=== PATIENT | female | born 1945 | race Caucasian/White ===

== ENCOUNTER 2018-06-28 08:52 | Emergency (ER) | payer MEDICARE, OTHER, SELFPAY ==
[2018-06-28 08:54] VITALS: BP 196/107; PULSE 97; RESP 18; TEMP 36.3; O2SAT 95; BMI 14.4
--- NOTE | 2018-06-28 09:12 | EKG12_ITS ---
Test Reason : GEN ILLNESS Blood Pressure : / mmHG Vent. Rate : 073 BPM Atrial Rate : 073 BPM P-R Int : 126 ms QRS Dur : 082 ms QT Int : 408 ms P-R-T Axes : 086 084 070 degrees QTc Int : 449 ms Normal sinus rhythm Normal ECG Confirmed by CLARISSA OWENS, JESIKA ([id number]), assignment editor VIVIAN CUETO ([id number]) on 07/01/2018 10:20:49 AM Referred By: SWETA Confirmed By:JESIKA ROMO MD
--- NOTE | 2018-06-28 09:18 | ED.DCSUM_ITS ---
- ER Visit Summary Date of Service: 06/28/18 Chief Complaint: Cough and congestion History of Present Illness: The patient is a 72 F with URI symptoms for the past 1 week. She is complaining of head congestion and ear pain last week. She was seen in the clinic and given amoxicillin. She still has cough and now more chest congestion. She states she woke at 6 AM this morning with left chest pressure. It is worse with movement and deep breath. She went back to bed got up at 8 AM and still had symptoms. When preparing to come to the hospital she had a fit of coughing and now pain is significantly improved. She denies having fever or chills. Physical Examination: Vital signs significant for blood pressure of 196/107. Patient sitting upright in bed. She is nontoxic appearing. Head neck examination reveals TMs to be clear bilaterally. She has mild posterior pharyngeal drainage. Heart is regular rate and rhythm. Lung sounds are clear. No reproducible chest wall tenderness. No crepitus. Abdomen is soft and nontender. Test Results: Two-view chest x-ray shows no acute disease. EKG is sinus at 73 with no sign of ischemia Emergency Department Course and Treatment: Patient was given DuoNeb treatment here. On repeat evaluation she does feel improved and has increased air movement on auscultation. She did take a home dose of Tylenol. Test results are discussed with patient and . I believe she is a viral URI. I believe her episode this morning was likely caused from a mucous plug. After coughing her symptoms seem to resolve. She will be given a course of prednisone and will continue to use her MDI at home. Treatment Plan: [] Disposition: Discharge Impression: 1. Viral URI 2. Atypical chest pain This note was generated with Part[employer] dictation software. It may contain incorrect words, spelling, and punctuation that were not noted in review of the chart prior to signing ED Disposition - Plan for ED Patient: Disposition: Home or Assisted Living Instructions: ED Reactive Airway Disease, ED URI Viral Prescriptions: Prednisone [Deltasone] 40 mg PO DAILY #10 tablet Referrals: Teddy Elmore MD [Primary Care Provider] - 1 Week
[2018-06-28 09:20] VITALS: PULSE 88; RESP 18
[2018-06-28] MEDS: Ipratropium/Albuterol Sulfate 3 ML AMPUL.NEB INHALATION (09:26)
--- NOTE | 2018-06-28 09:44 | RAD_ITS ---
STUDY: X-RAY CHEST REASON FOR EXAM: Female, 72 years old. Cough. TECHNIQUE: PA and lateral views of the chest. COMPARISON: 52 FINDINGS: The lungs are clear and expanded. There are well-defined nodular densities overlying both lungs likely due to the nipple shadows. There is no demonstrated pleural abnormality. Normal size heart. Normal mediastinum and simon. Normal visualized pulmonary. There is atherosclerotic calcification of the aortic arch with tortuosity. Normal visualized thoracic spine. Normal visualized ribs, clavicles, and shoulders. There is no demonstrated abnormality of the visualized soft tissue structures of the upper abdomen. RAD/Chest PA and Lateral IMPRESSION: No active pulmonary disease. Electronically Signed: Modesto Paris MD at 10:48 EST Tel , Service support ,
[2018-06-28 10:10] VITALS: BP 181/94; PULSE 71; PULSE 73; RESP 16; TEMP 36.9; O2SAT 92; O2SAT 93
--- NOTE | 2018-06-28 11:16 | ED.DEP ---
ED Disposition - Plan for ED Patient: Disposition: Home or Assisted Living Instructions: ED URI Viral, ED Reactive Airway Disease Prescriptions: Prednisone [Deltasone] 40 mg PO DAILY #10 tablet Referrals: Teddy Elmore MD [Primary Care Provider] - 1 Week
[2018-06-28 11:25] VITALS: BP 176/86; PULSE 76; RESP 16; O2SAT 98
== END 2018-06-28 11:26 | disposition home or self-care (01) ==
PROVIDERS: Emergency Provider Emergency Medicine; Family Provider Family Medicine; PCP Family Medicine
DX: J06.9 Acute upper respiratory infection, unspecified (principal); R07.89 Other chest pain; Z85.828 Personal history of other malignant neoplasm of skin; Z72.0 Tobacco use
CPT/HCPCS: 71046; 93005; 94640; 99282

== ENCOUNTER 2020-07-22 21:08 | Outpatient (RCR) | payer MEDICARE, OTHER, SELFPAY ==
[2020-07-22] MEDS: COVID-19 VACC, MRNA(PFIZER)/PF 30 MCG/0.3 ML SYRINGE IM (11:58)
[2020-08-12] MEDS: COVID-19 VACC, MRNA(PFIZER)/PF 30 MCG/0.3 ML SYRINGE IM (11:18)
== END 2020-07-22 23:59 ==
LOC: IMMUN 21:08
PROVIDERS: PCP Internal Medicine; Visit Provider Family Medicine
DX: Z23 Encounter for immunization (principal)
CPT/HCPCS: 0001A; 0002A

== ENCOUNTER 2023-05-28 09:02 | Observation (INO) | payer MEDICARE, OTHER, SELFPAY ==
[2023-05-28] VITALS (11 sets, daily range): BP systolic 127–176; BP diastolic 71–115; PULSE 79–111; RESP 16–20; TEMP 36.4–36.9; O2SAT 85–98; BMI 14.3; BMI 14.1
--- NOTE | 2023-05-28 09:37 | ED.VIS.DYS ---
HPI History of Present Illness Chief Complaint: Shortness of Breath Informant: patient Onset/Context/Timing Onset: Days (5-7) Context: gradual Timing: Continuous Quality: Positive for Dyspnea on exertion Worsened by: Exertion, Lying flat and Coughing Relieved by: Nothing Associated Symptoms cough, sore throat and clear sputum; Negative for rhinorrhea, post nasal drip, ear pain, fever, chills, white sputum, yellow sputum or green sputum Chest Pain: Positive for None Narrative Narrative: Patient presents with shortness of breath that has been getting worse over the past 5 to 7 days. Patient states it is gradually getting worse. Patient states her breathing is worse with exertion and with laying flat. Patient states she is coughing up some clear sputum. Patient also admits to a sore throat. Patient admits to some subjective chills but denies any fevers. Patient denies any chest pain. Patient denies any nausea or vomiting. PE Risk Factors: Negative for Cancer, OCP + Smoking + > 35, Prior DVT or PE, Recent immobilization, Recent surgery or Recent travel [facility] Medical History Basal cell carcinoma (BCC) Eardrum rupture, right External otitis of left ear Polyp, vocal cord Home Medications diphenoxylate-atropine 2.5 mg-0.025 mg tablet 1 tab PO TID PRN DIARRHEA 07/02/14 [History Last Taken Unknown] zpmafdcg-hvh-cfeee acid 0.4 mg-lycopene 300 mcg-lutein 250 mcg tablet (Centrum Silver) 1 ea PO DAILY HEALTH MAINTENANCE 07/02/14 [History Last Taken Unknown] rizatriptan 10 mg tablet 10 mg PO .X1 PRN MIGRAINE 07/02/14 [History Last Taken Unknown] lisinopril 30 mg tablet 30 mg PO BID BLOOD PRESSURE #180 tabs 05/29/22 [Rx Last Taken Unknown] albuterol sulfate 90 mcg/actuation aerosol inhaler 2 puff inhalation Q6H PRN SHORTNESS OF BREATH/WHEEZING #8.5 grams 10/09/22 [Rx Last Taken Unknown] dicyclomine 20 mg tablet 20 mg PO TID PRN ABDOMINAL PAIN 05/28/23 [History Last Taken Unknown] Allergy/AdvReac Type Severity Reaction Status Date / Time Sulfa (Sulfonamide Allergy Shortness Verified 05/28/23 09:04 Antibiotics) of breath valdecoxib [From Bextra] Allergy Unknown Verified 05/28/23 09:04 amoxicillin AdvReac Upset Verified 05/28/23 09:04 Stomach erythromycin base AdvReac Upset Verified 05/28/23 09:04 Stomach Family History Other Breast cancer Heart disease Surgical History H/O colectomy H/O hysterectomy for benign disease Social History Smoking Status: Current every day smoker tobacco type: cigarettes alcohol intake: current alcohol intake frequency: a few times a week Alcohol type: wine ROS ROS ED Constitutional Constitutional ED: Denies chills or fever(s) Eyes Eyes: Denies blurry vision or change in vision ENT ENT ED: Reports sore throat; Denies rhinorrhea Cardiovascular Cardiovascular: Denies chest pain or palpitations Respiratory/Chest Respiratory/Chest: Reports cough and dyspnea Gastrointestinal Gastrointestinal: Denies nausea or vomiting Genitourinary Genitourinary ED: Denies dysuria or hematuria Musculoskeletal Musculoskeletal: Denies back pain or neck pain Integumentary Denies abscess or rash Neurologic Neurologic: Reports headache(s); Denies weakness Allergic/Immunologic Allergic/Immunologic ED: Denies mouth swelling or urticaria EXAM Physical Exam Const Vital Signs: 05/28/23 09:02 05/28/23 09:04 05/28/23 09:16 Temperature 97.7 F L 97.6 F L Temperature Source Temporal Temporal Pulse Rate 111 H 103 H Respiratory Rate 18 18 Respiratory Effort Short of Breath Respiratory Depth Normal Respiratory Pattern Normal Blood Pressure 176/115 H 157/71 H Blood Pressure Mean 135 99 Pulse Ox 85 92 Oxygen Delivery Method Room Air Room Air Room Air 05/28/23 10:11 05/28/23 10:11 05/28/23 10:24 Temperature Temperature Source Pulse Rate 84 92 Respiratory Rate 17 19 H Respiratory Effort Respiratory Depth Respiratory Pattern Normal Blood Pressure 148/72 H Blood Pressure Mean 97 Pulse Ox 94 94 Oxygen Delivery Method Room Air Positive well nourished and well developed General Appearance ED: well developed and NAD HEENT Reports moist mucous membranes Neck supple, no meningeal signs and no JVD Resp normal respiratory effort Auscultation: wheezes throughout Cardio regular rhythm Rate: tachycardic GI non-tender and non-distended Palpation: soft Extremity normal to inspection General Extremety ED: Negative for edema or tenderness General Extremity: Negative for edema Neuro oriented x3, CN's II-XII intact bilaterally and no sensory deficits noted [place] Coma Scale: document GCS findings Spontaneous Obeys Commands Oriented 15 Sensorium / Orientation: alert Speech: speech normal Motor Exam: strength 5/5 throughout Psych mental status grossly normal MDM MDM MDM Narrative Medical decision making narrative: Differential diagnosis includes COPD exacerbation, pneumonia, pneumothorax, viral upper respiratory infection, COVID-19 infection, influenza infection, RSV infection, cardiac dysrhythmia, and cardiac ischemia. EKG will be obtained to assess for cardiac dysrhythmia and cardiac ischemia. Chest x-ray will be obtained to assess for pneumonia and pneumothorax. CBC will be obtained to assess for leukocytosis and anemia. Basic metabolic profile will be obtained to assess for electrolyte abnormality and renal function. COVID-19 PCR will be obtained to assess for COVID-19 infection. Influenza a and B PCR will be obtained to assess for influenza infection. RSV PCR will be obtained to assess for RSV infection. Lab Data Attestation: I reviewed the patient's lab results. Lab results narrative: CBC was reviewed. Hemoglobin was slightly elevated at 16.4 and hematocrit was 49.1. Platelets were normal. Basic metabolic profile was reviewed and was within normal limits. COVID-19 PCR was reviewed and was positive. Influenza A and influenza B PCR swabs were reviewed and were negative. RSV PCR was reviewed and was negative. Labs: Laboratory Results - last 24 hr 05/28/23 09:15 WBC 11.0 RBC 4.82 Hgb 16.4 H Hct 49.1 H MCV 101.9 H MCH 34.0 H MCHC 33.4 RDW Std Deviation 46.6 H RDW Coeff of Anthony 12.4 Plt Count 254 MPV 9.5 Immature Gran % (Auto) 0.400 Neut % (Auto) 78.1 H Lymph % (Auto) 11.1 L [place] % (Auto) 9.9 Eos % (Auto) 0.0 Baso % (Auto) 0.5 Absolute Neuts (auto) 8.6 H Absolute Lymphs (auto) 1.23 Nucleated RBC % 0 Sodium 136 Potassium 3.9 Chloride 103 Carbon Dioxide 27.0 Anion Gap 6 BUN 17 Creatinine 0.98 Estim Creat Clear Calc 30.18 Est GFR (MDRD) Af Amer 71 Est GFR (MDRD) Non-Af 59 L BUN/Creatinine Ratio 17.3 Glucose 118 H Calcium 9.7 Radiography Chest X-Ray - ED: 2 View, Read by ED Physician, Read by Radiologist and No Acute Disease Diagnostic Testing: Clinical Impression(s) from Imaging Studies Chest X-Ray 05/28/23 09:42 IMPRESSION: Stable cardiomegaly with hyperinflation. No active or acute cardiopulmonary disease. Electronically Signed: Darell Zuñiga MD at 10:39 EST , PA and lateral chest x-ray was obtained. There are 2 views. On my independent interpretation, lung [place] are hyperinflated but clear. There is normal cardiac silhouette. Bony thorax is normal. There is no acute process noted. Radiologist also interpreted the x-ray and agrees. EKG Initial EKG: Attestation: I personally reviewed and interpreted this EKG as follows: Interpretation: Sinus Rhythm (89) and No Acute Injury Pattern Comments: EKG was obtained. On my independent interpretation, it showed a normal sinus rhythm with a rate of 89. [place] interval, QRS interval, and QTc intervals were all normal. [place] was normal. There are no acute ST or T wave changes. Prior EKG tracings: available for review Prior: Unchanged (06/28/2018) Treatment and Re-Evaluation :: Patient was given a DuoNeb aerosol here. Patient was given a trial on room air and her pulse oximeter dropped to 87% on room air. Patient was given a dose of Decadron. Case will be discussed with the hospitalist for admission. He will admit the patient for observation. Patient understands and is agreeable with the plan. All questions were answered. Discharge Plan Triage Chief Complaint: Shortness of Breath ED Provider: Aaron Limon Dx/Rx/DC Orders Clinical Impression: COVID-19, Asthma, Hypoxia Prescriptions: No Action albuterol sulfate 90 mcg/actuation HFA aerosol inhaler 2 puff inhalation Q6H PRN (Reason: SHORTNESS OF BREATH/WHEEZING ) Qty: 8.5 1RF rizatriptan 10 MG tablet 10 mg PO .X1 PRN diphenoxylate-atropine 1 TABLET tablet 1 tab PO TID PRN (Reason: DIARRHEA ) Centrum Silver 1 EACH tablet 1 ea PO DAILY dicyclomine 20 mg tablet 20 mg PO TID PRN (Reason: ABDOMINAL PAIN ) lisinopril 30 mg tablet 30 mg PO BID Qty: 180 3RF Primary Care Provider: Cait Noguera Referrals: Rea Proctor MD [Med Staff - Director Of Marketing Analytics] - Disposition Disposition: Acute Care Hospital [facility]
--- NOTE | 2023-05-28 09:42 | EKG12_ITS ---
Test Reason : SOB Blood Pressure : / mmHG Vent. Rate : 089 BPM Atrial Rate : 089 BPM P-R Int : 122 ms QRS Dur : 072 ms QT Int : 370 ms P-R-T Axes : 079 071 060 degrees QTc Int : 450 ms Normal sinus rhythm Possible Left atrial enlargement Borderline ECG Confirmed by CLARISSA OWENS, JESIKA ([id number]), editor at large ERIC SCHULTZ ([id number]) on 05/29/2023 9:58:50 AM Referred By: Confirmed By:JESIKA ROMO MD
--- NOTE | 2023-05-28 09:42 | RAD_ITS ---
STUDY: X-RAY CHEST REASON FOR EXAM: Female, 77 years old. Dyspnea. TECHNIQUE: Frontal and lateral views of the chest. COMPARISON: June 28, 2018 FINDINGS: Marked hyperinflation unchanged. There is no demonstrated pleural abnormality. Stable mild cardiomegaly with aortic tortuosity and calcification. Normal mediastinum and simon. Normal visualized pulmonary arteries. Normal visualized thoracic spine. Normal visualized ribs, clavicles, and shoulders. There is no demonstrated abnormality of the visualized soft tissue structures of the upper abdomen. RAD/Chest PA and Lateral IMPRESSION: Stable cardiomegaly with hyperinflation. No active or acute cardiopulmonary disease. Electronically Signed: Darell Zuñiga MD at 10:39 EST ,
[2023-05-28 09:53] LABS: Absolute Lymphocyte Count 1.23 X10^3/uL (0.83-4.51); Absolute Neutrophil Count 8.6 X10^3/uL (2.0-7.7); Basophil# 0.05 X10^3/uL; Basophil% 0.5 % (0-1); Hematocrit 49.1 % (37-47); Hemoglobin 16.4 g/dL (12.0-15.0); Lymphocyte # 1.23 X10^3/ul (0.83-4.51); Lymphocyte % 11.1 % (19-41); Mean Corp Hgb Conc 33.4 g/dL (32-36); Mean Corpuscular Volume 101.9 fL (81-99); Mean Platelet Vol. 9.5 fl (6.2-12.0); Monocyte# 1.09 X10^3/uL; Monocyte% 9.9 % (0-10); NRBC Flagged by Analyzer 0 % (0-5); Neutrophil # 8.63 X10^3/uL (2.7-7.7); Neutrophil % 78.1 % (47-70); Platelet Count 254 K/mm3 (150-450); RBC Distribution Width CV 12.4 % (11.6-14.6); RBC Distribution Width SD 46.6 fl (35.1-43.9); Red Blood Count 4.82 M/mm3 (4.2-5.4)
[2023-05-28 10:02] LABS: Anion Gap 6 (5-15); BUN 17 mg/dL (7-18); BUN/Creat Ratio 17.3 RATIO (10-20); Calcium,Total 9.7 mg/dL (8.5-10.1); Chloride 103 mmol/L (98-107); Creatinine, Serum 0.98 mg/dL (0.55-1.02); EST Glomerular Filtration Rate 59 mL/min (>60); Est Glom Filt Rate - Afr Amer 71 mL/min (>60); Estimated Creatinine Clearance 30.18 ml/min; Glucose 118 mg/dL (74-106); Potassium 3.9 mmol/L (3.5-5.1); Sodium Level 136 mmol/L (136-145)
[2023-05-28] MEDS: Ipratropium/Albuterol Sulfate 3 ML AMPUL.NEB INHALATION ×2 (10:10→15:47)
--- OUTSIDE RECORDS SUMMARY | 2023-05-28 10:36 | XMS RPT_ITS | CCD ---
Author Name Unknown Address [address] [facility] [address] [place] [address] Organization [facility] Care Team Providers Care Clinical Pathologist Name Role Phone Umang Noguera MD Primary Care Provider Unavailable Primary Care Provider UnavailRony Odom MD Primary Care Provider [phone] Umang Noguera MD Primary Care Provider RONY BALL Primary Care Unavailable UMANG NOGUERA Primary Care Unavailable UMANG NOGUERA Primary Care Unavailable UMANG NOGUERA Primary Care Unavailable TAMARA DUBON Referring Unavailable RONY BALL Primary Care Unavailable Allergies Allergy Classification Reported Allergen(s) Allergy Type Date of Onset Reaction(s) Facility (6 sources) Amoxicillin; Translations: [AMOXICILLIN] Drug Allergy 07-04-19 19 Diarrhea [facility] (6 sources) Seasonal allergy; Translations: [SEASONAL ALLERGIES] Allergy to substance 10-25-19 18 Other: See Comments [facility] (6 sources) Sulfonamides (Antibiotic); Translations: [SULFA (SULFONAMIDE ANTIBIOTICS)] Drug Intolerance 02-08-20 05 Intolerance [facility] (6 sources) valdecoxib; Translations: [VALDECOXIB] Drug Allergy 02-08-20 05 Intolerance [facility] (5 sources) environmental and seasonal [Other] Propensity to adverse reactions 02-08-20 05 Intolerance [facility] (5 sources) erthromycin [Other] Propensity to adverse reactions 02-08-20 05 GI Upset [facility] (1 source) OTHER; Translations: [OTHER] Propensity to adverse reactions (disorder) 02-08-20 05 [facility] [place] Repository Medications Current Medications Medication Drug Class(es) Dates Sig (Normalized) Sig (Original) benzonatate 100 mg oral capsule (1 source) Non-narcotic Antitussive Start: 12-18-2022 End: 12-25-2022 take 1 capsule by mouth every eight hours as needed for cough and cough benzonatate (TESSALON PERLES) 100 mg capsule Indications: Acute cough Take 1 capsule by mouth three times daily as needed for up to 7 days. 21 capsule 0 12/18/2022 12/25/2022 Active Completed/Discontinued Medications Medication Drug Class(es) Dates Sig (Normalized) Sig (Original) [id number] 200 actuat albuterol 0.09 mg/actuat metered dose inhaler (7 sources) beta2-Adrenergic Agonist Start: 01-21-2023 albuterol HFA (PROAIR HFA) 90 mcg/actuation inhaler Indications: Exacerbation of intermittent asthma, unspecified asthma severity Inhale 2 Puffs as instructed every 4 hours as needed for wheezing/shortness of breath (1 inhaler). 1 Each 1 01/21/2023 Active Problems Active Problems Problem Classification Problem Date Documented Da te Episodic/Chronic Anxiety disorders (5 sources) Anxiety; Translations: [Anxiety disorder, unspecified] Onset: 09-14-2015 07-20-2016 Chronic Asthma (2 sources) Exacerbation of intermittent asthma; Translations: [Mild intermittent asthma with (acute) exacerbation] Chronic Chronic obstructive pulmonary disease and bronchiectasis (5 sources) Chronic obstructive lung disease; Translations: [Chronic obstructive pulmonary disease, unspecified] 07-20-2016 Chronic Essential hypertension (5 sources) Benign essential hypertension; Translations: [Essential (primary) hypertension] 07-20-2016 Chronic Headache; including migraine (5 sources) Migraine without aura, not refractory ; Translations: [Migraine without aura, not intractable, without status migrainosus] Onset: 03-20-2017 03-20-2017 Chronic Other circulatory disease (5 sources) Raynaud's phenomenon; Translations: [Raynaud's syndrome without gangrene] 05-30-2019 Chronic Other gastrointestinal disorders (5 sources) Irritable bowel syndrome with diarrhea; Translations: [Irritable bowel syndrome with diarrhea] Onset: 08-27-2015 07-20-2016 Chronic Other inflammatory condition of skin (5 sources) Rosacea; Translations: [Rosacea, unspecified] Onset: 02-27-2006 05-30-2019 Chronic Other inflammatory condition of skin (5 sources) Psoriasis; Translations: [Other psoriasis] Onset: 05-17-2010 07-20-2016 Chronic Other lower respiratory disease (2 sources) Cough; Translations: [Acute cough] 12-18-2022 Episodic Other upper respiratory disease (5 sources) Allergic rhinitis; Translations: [Allergic rhinitis, unspecified] Onset: 09-19-2007 07-20-2016 Chronic Other upper respiratory disease (1 source) Chronic rhinitis; Translations: [Unspecified sinusitis (chronic)] 12-18-2022 Chronic Other upper respiratory infections (1 source) Sore throat symptom; Translations: [Acute pharyngitis, unspecified] 12-18-2022 Episodic Substance-related disorders (5 sources) Smoker; Translations: [Nicotine dependence, unspecified, uncomplicated] Onset: 07-20-2016 07-20-2016 Chronic Unclassified (1 source) Acute cough; Translations: [Acute cough] Onset: 12-18-2022 Past or Other Problems Problem Classification Problem Date Documented Date Episodic/Chronic Disorders of teeth and jaw (5 sources) Temporomandibular joint disorder; Translations: [Unspecified temporomandibular joint disorder, unspecified side] Onset: 08-14-2005 07-20-2016 Episodic Hemorrhoids (5 sources) Bleeding internal hemorrhoids; Translations: [Other hemorrhoids] Onset: 04-21-2015 07-20-2016 Episodic Other circulatory disease (5 sources) Spider nevus; Translations: [Nevus, non-neoplastic] Onset: 02-24-2009 07-20-2016 Episodic Other connective tissue disease (5 sources) Ganglion cyst of tendon sheath; Translations: [Ganglion, unspecified site] Onset: 10-25-2007 07-20-2016 Episodic Other non-epithelial cancer of skin (5 sources) History of malignant neoplasm of skin; Translations: [Personal history of other malignant neoplasm of skin] Onset: 02-07-2005 07-20-2016 Episodic Other nutritional; endocrine; and metabolic disorders (5 sources) Underweight; Translations: [Underweight] Onset: 08-27-2015 08-27-2015 Episodic Other skin disorders (5 sources) Actinic keratosis; Translations: [Actinic keratosis] Onset: 10-25-2007 07-20-2016 Episodic Other skin disorders (5 sources) Asteatosis cutis; Translations: [Xerosis cutis] Onset: 05-17-2010 07-20-2016 Episodic Other skin disorders (5 sources) Inflamed seborrheic keratosis; Translations: [Inflamed seborrheic keratosis] Onset: 04-06-2012 07-20-2016 Episodic Other upper respiratory disease (5 sources) Hoarse; Translations: [Dysphonia] Onset: 07-26-2016 07-26-2016 Episodic Other upper respiratory disease (5 sources) Polyp of vocal cord ; Translations: [Polyp of vocal cord and larynx] Onset: 09-19-2016 09-19-2016 Episodic Residual codes; unclassified (5 sources) History of partial resection of colon; Translations: [Acquired absence of other specified parts of digestive tract] Onset: 06-23-2014 01-04-2021 Episodic Results Test Name Value Interpretation Reference Range Facil ity Vital Signs Date Time Vital Sign Value Performing Clinician Faci lity 12-18-2022 08:07-0400 Body temperature 98.29 [degF] Tamara Dubon APRN.REPAIRER [employer] Work Phone: [facility] 12-18-2022 08:07-0400 Body weight 39.46 kg Tamara Dubon APRN.REPAIRER [employer] Work Phone: [facility] 12-18-2022 08:07-0400 Diastolic blood pressure 98 mm[Hg] Tamara Dubon APRN.REPAIRER [employer] Work Phone: [facility] 12-18-2022 08:07-0400 Heart rate 100 /min Tamara Dubon APRN.REPA[employer]ER [employer] Work Phone: [facility] 12-18-2022 08:07-0400 Respiratory rate 20 /min Tamara Dubon APRN.REPA[employer]ER [employer] Work Phone: [facility] 12-18-2022 08:07-0400 SaO2% (BldA) [Mass fraction] 97 % Tamara Dubon APRN.REPA[employer]ER [employer] Work Phone: [facility] 12-18-2022 08:07-0400 Systolic blood pressure 164 mm[Hg] Tamara Dubon APRN.REPA[employer]ER [employer] Work Phone: [facility] 09-03-2022 08:26-0400 Body temperature 97.39 [degF] Lynn Praisler-Wood FLUX PLANT OPERATOR.REPA[employer]ER [employer] Work Phone: [facility] 09-03-2022 08:26-0400 Body weight 40.64 kg Lynn Praisler-Wood FLUX PLANT OPERATOR.RE[employer]ER [employer] Work Phone: [facility] 09-03-2022 08:26-0400 Diastolic blood pressure 68 mm[Hg] Lynn Praisler-Wood FLUX PLANT OPERATOR.REPA[employer]ER [employer] Work Phone: [facility] 09-03-2022 08:26-0400 Heart rate 110 /min Lynn Praisler-Wood FLUX PLANT OPERATOR.REPA[employer]ER [employer] Work Phone: [facility] 09-03-2022 08:26-0400 Respiratory rate 18 /min Lynn Praisler-Wood FLUX PLANT OPERATOR.REPA[employer]ER [employer] Work Phone: [facility] 09-03-2022 08:26-0400 SaO2% (BldA) [Mass fraction] 95 % Lynn Praisler-Wood FLUX PLANT OPERATOR.REPA[employer]ER [employer] Work Phone: [facility] 09-03-2022 08:26-0400 Systolic blood pressure 122 mm[Hg] Lynn Praisler-Wood FLUX PLANT OPERATOR.[employer] Work Phone: [facility] Encounters Encounter Date Encounter Type Care Provider Facility Start: 05-28-2023 End: 05-28-2023 ambulatory UMANG NOGUERA Facility:[facility] Start: 01-19-2023 Telephone encounter Umang guidry MD Work Phone: Internal Medicine Val Procedures Date Procedure Procedure Detail Performing Clinician Start: 12-18-2022 STREP A MOLECULAR (POC) Tamara Dubon APRN.[employer]PA[employer]ER [employer] Work Phone: Start: 04-28-2019 Mammography No Pcp Start: 04-22-2018 Adult depression scr eening assessment No Pcp Start: 03-10-2015 Colonoscopy No Pcp Plan of Treatment Date Care Activity Detail Author Start: 10-11-2027 Urine microalbumin profile DTA P,TDAP,TD (3 - Td or Tdap) [facility] Start: 03-10-2025 Colonoscopy COLONOSCOPY [facility] Start: 03-10-2025 COLORECTAL CANCER SCREENING COLORECTAL CANCER SCREENING [facility] Start: 11-09-2023 LIPID SCREEN LIPID SCREEN [facility] Start: 09-04-2023 BP CONTROLLED (<130/80) BP CONTROLLE D (<130/80) [facility] Start: 06-04-2023 DIABETES SCREEN DIABETES SCREEN [facility] Start: 01-19-2023 Influenza vaccination [facility] Start: 05-21-2022 ADVANCE DIRECTIVE DISCUSSION ADVANCE DIRECTIVE DISCUSSION [facility] Start: 05-21-2022 DEPRESSION ASSESSMENT DEPRESSION ASS ESSMENT [facility] Start: 04-05-2022 BP CONTROLLED (<130/80) BP CONTROLLE D (<130/80) [facility] Start: 01-19-2022 Influenza vaccination INFLUENZA (Sea son Ended) [facility] Start: 07-07-2021 ANNUAL PCP TEAM [place] DEMONSTRATOR NATHAL[place] DISEASE VISIT ANNUAL PCP TEAM CHRONIC DISEASE VISIT [facility] Start: 07-04-2021 COVID-19 VACCINE (4 - Booster for Pfizer series) COVID-19 VACCINE (4 - Booster for Pfizer series) [facility] Start: 05-21-2021 ADVANCE DIRECTIVE DISCUSSION ADVANCE DIRECTIVE DISCUSSION [facility] Start: 04-28-2021 COVID-19 VACCINE (4 - Booster for Pfizer series) COVID-19 VACCINE (4 - Booster for Pfizer series) [facility] Start: 04-28-2021 COVID-19 VACCINE (4 - Pfizer series) COVID-19 VACCINE (4 - Pfizer series) [facility] Start: 04-28-2020 Mammography MAMMOGRAM [facility] Start: 04-22-2019 Adult depression scr eening assessment DEPRESSION SCREENING [facility] Start: 12-05-2017 SHINGRIX VACCINE (3 of 3) SHINGRIX V ACCINE (3 of 3) [facility] Start: 1996 Influenza vaccination LUNG CANCER SC REENING [facility] Start: 09-28-1991 COLOGUARD (FIT-DNA) COLOGUARD (FIT-D NA) [facility] Start: 09-28-[address] COLONOGRAPHY [facility] Start: 09-28-1991 FECAL OCCULT BLOOD FECAL OCCULT BLOO D [facility] Start: 09-28-1991 SIGMOIDOSCOPY SIGMOIDOSCOPY [facility] Start: 1976 Zoledronic acid therapy ALPHA- 1 ANTITRYPSIN DEFICIENCY SCREENING [facility] Start: 1964 SPIROMETRY SPIROMETRY [facility] Immunizations Immunization Date Immunization Notes Care Provider Lamberto pickett 03-03-2021 COVID-19 vaccine, ag e 12+ yr (PFIZER-BIONTECH - PURPLE TOP) No [facility] Work Phone: 08-12-2020 COVID-19 vaccine, ag e 12+ yr (PFIZER-BIONTECH - PURPLE TOP) No [facility] Work Phone: 07-22-2020 COVID-19 vaccine, ag e 12+ yr (PFIZER-BIONTECH - PURPLE TOP) No [facility] Work Phone: 03-04-2020 influenza, high dose seasonal, preservative-free No [facility] 02-17-2019 influenza, high dose seasonal, preservative-free No [facility] Work Phone: 02-27-2018 influenza, high dose seasonal, preservative-free No [facility] Work Phone: 10-10-2017 tetanus toxoid, redu chapis diphtheria toxoid, and acellular pertussis vaccine, adsorbed No [facility] Work Phone: 10-10-2017 zoster vaccine recombinant No [facility] Work Phone: 02-17-2017 influenza, high dose seasonal, preservative-free No [facility] 09-19-2016 pneumococcal conjuga te vaccine, 13 valent No [facility] 03-18-2016 influenza, high dose seasonal, preservative-free No [facility] Work Phone: 03-01-2013 influenza virus vacc ine, unspecified formulation No [facility] 02-14-2013 pneumococcal polysaccharide vaccine, 23 valent No [facility] 02-10-2012 influenza virus vacc ine, unspecified formulation No [facility] Work Phone: 03-11-2011 influenza virus vacc ine, unspecified formulation No [facility] Work Phone: 09-16-2010 zoster vaccine, live No [facility] 02-22-2010 influenza virus vacc ine, unspecified formulation No [facility] 05-04-2009 novel influenza-H1N1 -09, preservative-free, injectable No [facility] Work Phone: 02-11-2009 influenza virus vacc ine, unspecified formulation No [facility] Work Phone: 07-16-2008 tetanus toxoid, redu chapis diphtheria toxoid, and acellular pertussis vaccine, adsorbed No [facility] 03-14-2008 influenza virus vacc ine, unspecified formulation No [facility] Work Phone: 03-14-2008 pneumococcal polysaccharide vaccine, 23 valent No [facility] Work Phone: 03-24-2006 influenza virus vacc ine, unspecified formulation No [facility] Work Phone: 03-30-2005 influenza virus vacc ine, unspecified formulation No [facility] Work Phone: Payers Date Payer Category Payer Unknown [facility] 2ND [id number] 2020-Present [phone] [address] [address] [place] [address] Indemnity [id number] 2020 Unknown [employer] 2ND [id number] 2020-Present [phone] [address] [address] [place] [address] Indemnity [id number] 2020 Unknown [id number] 2017 Medicare MEDICARE MEDICAR E A AND B [id number] 2017-Present [phone] [address] [address] [place] [address] Medicare [id number] 2017 Medicare MEDICARE MEDICAR E A AND B [id number] 2017-Present [phone] [place] [address] Medicare [id number] 2017 Medicare [id number] Social History Date Type Detail Facility Start: 09-03-2022 Tobacco smoking stat us [facility]IS Smokes tobacco daily [facility] History of tobacco use Cigarette Smoker [facility] Start: 09-20-2020 End: 12-18-2022 Alcohol intake Current drinker of alcohol (finding) [facility] Start: 07-20-2016 History SDOH Alcohol Comment has a glass of wine a day. [facility] Start: 1945 Sex Assigned At Not on file [facility] Start: 04-25-2020 End: 09-03-2022 Cigarettes smoked current (pack per day) - Reported 1 [facility] Start: 09-03-2022 Tobacco use and exposure Smoke less tobacco non-user [facility] Start: 09-03-2022 Tobacco Comment less than 1 pk. per day [facility] Start: 04-25-2020 End: 12-18-2022 Tobacco use panel [facility] Adult Depression Scr eening Assessment 0 [facility] Clinical Notes 03-20-2017 to 05-28-2023 Telephone Encounter - Umang Noguera MD - 01/21/2023 1:04 AM EDTTelephone Encounter - Lorrie Reyes - 01/19/2023 9:15 AM Tamara Lomas APRN.CNP - 12/18/2022 8:23 AM EDT Note Date & Type Note Facility 05-28-2023 Note HNO ID: [id number] Author: TAMARA DUBON APRN.HAZEL Service: ? Author Type: Nurse Practitioner Type: Progress Notes Filed: 05/28/2023 07:41 Note Text: He came in with complaints of cough wheezing and shortness of breath. Patient says she has been sick a week. Patient feels extremely fatigued. Upon checking blood pressure is 158/100. And unable to get oxygen saturations above 89. Dipping as low as 84% on room air. Patient normally runs in the mid to high 90s. Patient is being sent to the emergency room for full evaluation. Patient prefers that her son take her. [facility] 01-21-2023 Miscellaneous Notes The following approved medication requests have been transmitted electronically. Requested Prescriptions Signed Prescriptions Disp Refills albuterol HFA (PROAIR HFA) 90 mcg/actuation inhaler 1 Each 1 Sig: Inhale 2 Puffs as instructed every 4 hours as needed for wheezing/shortness of breath (1 inhaler). Authorizing Provider: UMANG NOGUERA cetirizine (ALL DAY ALLERGY) 10 mg tablet 90 tablet 3 Sig: Take 1 tablet by mouth once daily as needed. Authorizing Provider: UMANG NOGUERA MD Note that cetirizine was last antihistamine prescribed but might not be covered since is OTC. Did get Flonase in November--might not be covered either but this is also available OTC. [facility] is calling Umang Noguera MD today Patients allergies are bad and asking for albuterol HFA inhaler and allergy medication. Please advise and return her call at [phone] or cell phone [phone] [facility] documented in this encounter [facility] 12-18-2022 Note HNO ID: [id number] Author: Janina Sandoval RT(R) Service: Radiology Author Type: Technologist Type: Progress Notes Filed: 12/18/2022 8:41 AM Note Text: Radiology Service Progress Note PATIENT NAME: Unique Wild DATE OF SERVICE: December 18, 2022 TIME: 8:33 AM PATIENT IDENTITY VERIFICATION COMPLETED USING TWO (2) IDENTIFIERS: Name and Date of confirmed by patient verbally. FALL SCREENING: Has the patient had 2 falls in the last year or 1 fall with injury or currently using an Ambulatory Assistive Device (Walker, Cane, Wheelchair, Crutches, etc.)? No PATIENT GENDER DATA: Female. status: : No status: NO. PATIENT RELEVANT IMPLANT DATA REVIEWED: Yes RADIOLOGY DEPARTMENT: General X-ray: Exam(s) Completed: Chest X-Ray PERIPHERAL IV DATA: Not applicable SIGNED BY: RT Nelly(R) December 18, 2022 8:33 AM [facility] 12-18-2022 Note HNO ID: [id number] Author: Tamara Dubon APRN.REPA[employer]ER [employer] Service: ? Author Type: Nurse Practitioner Type: Progress Notes Filed: 12/18/2022 9:09 AM Note Text: CC: Patient presents with: Cough: Congestion x 2 weeks HPI: Unique Wild is a 77 year old female who presents to the office with complaint of head congestion, cough, nonproductive, sore throat, and sinus symptoms for 2 weeks. Symptoms are staying the same. Associated symptoms includes nasal congestion and facial pain/pressure. Denies fever, nausea, vomiting , and diarrhea. Treatments tried include doxycycline with minor relief of symptoms. Sick contacts: unknown. History of asthma, frequent episodes of bronchitis, chronic bronchitis, bronchiectasis or COPD: asthma Smoker: No Seasonal/environmental allergies: No The ROS is otherwise negative. The patient's pmh, medications, allergies, and past visits are reviewed. PHYSICAL EXAM: BP 164/98 Pulse 100 Temp 36.8 ?C (98.3 ?F) Resp 20 Wt 39.5 kg (87 lb) SpO2 97% BMI 14.93 kg/m? General appearance: alert, cooperative, pleasant, in no acute distress Head: Normocephalic Eyes: EOM's intact, conjunctiva pink and moist, no icterus, sclera white, non-injected Ears: Right ear: External ear/canal- Normal, TM - clear with good landmarks. Left ear: External ear/canal- Normal, TM - clear with good landmarks Oropharynx:mild erythema, without exudates present Heart: Negative. RRR without obvious murmur, gallop, or rubs. No ectopy. Lungs: clear to auscultation, without rales or wheeze, good air exchange PAST MEDICAL HISTORY Diagnosis Date ACTINIC KERATOSES (Premalignant AK's) 10/25/2007 Allergic rhinitis, cause unspecified 09/19/2007 Anxiety 09/14/2015 Arrhythmia Chronic obstructive pulmonary disease (COPD) (HCC) Esotropia 1999 Essential hypertension, benign Ganglion of tendon sheath 10/25/2007 Internal hemorrhoids without mention of complication Irritable bowel syndrome with diarrhea 08/27/2015 Migraine headache 11/27/2011 Other osteoporosis Raynaud phenomenon Rheumatic fever without mention of heart involvement CHILD Smoker 07/20/2016 Started at age 23 up to 1 PPD and now smokes 1/2 a pack Snoring 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 joint disorders, unspecified 08/14/2005 Underweight due to inadequate caloric intake 08/27/2015 PAST SURGICAL HISTORY Procedure Laterality Date COLONOSCOPY FLX DX W/COLLJ SPEC WHEN PFRMD 03/21/06 COLONOSCOPY FLX DX W/COLLJ SPEC WHEN PFRMD 03/10/2015 repeat 10 yrs HEMORRHOIDECTOMY INTERNAL RUBBER BAND LIGATIONS 04/21/15 HYSTEROSCOPY, DIAGNOSTIC (SEPARATE 12/26/2007 Hysteroscopy LAPAROSCOPY COLECTOMY PARTIAL W/ANASTOMOSIS 07-09-14 PAST SURGICAL HISTORY OF LEFT CYST ON WRIST TONSILLECTOMY PRIMARY/SECONDARY VAGINAL HYSTERECTOMY UTERUS 250 GM/< 02/13/2008 Hysterectomy, vaginal - post menopausal bleeding, ovaries removed ALLERGIES Amoxicillin, Bextra [Valdecoxib], Environmental And Seasonal [Other], Erthromycin [Other], Seasonal Allergies, and Sulfa (Sulfonamide Antibiotics) MEDICATIONS doxycycline (VIBRA-TABS) 100 mg tablet Take 1 tablet by mouth twice daily for 7 days. albuterol HFA (PROAIR HFA) 90 mcg/actuation inhaler Inhale 2 Puffs as instructed every 4 hours as needed for wheezing/shortness of breath (1 inhaler). dicyclomine (BENTYL) 20 mg tablet Take 1 tablet by mouth every 6 hours. escitalopram oxalate (LEXAPRO) 5 mg tablet Take 1 tablet by mouth once daily. cetirizine (ALL DAY ALLERGY) 10 mg tablet Take 1 tablet by mouth once daily as needed. lisinopril (ZESTRIL) 30 mg tablet Take 1 tablet by mouth twice daily. rizatriptan (MAXALT) 10 mg tablet 1 po every 2 hrs as needed for migraine (max 30mg/24 hrs) multivitamins(DAILY MULTIVITAMIN TAB) Take one(1) tablet daily. diphenoxylate-atropine (LOMOTIL) 2.5-0.025 mg per tablet Take 1 tablet by mouth before meals and at bedtime for 180 days. FAMILY HISTORY Problem Relation Age of Onset Heart Father heart attack Cancer Mother breast Social History Tobacco Use Smoking status: Every Day Packs/day: 1.00 Years: 20.00 Total pack years: 20.00 Types: Cigarettes Smokeless tobacco: Never Tobacco comments: less than 1 pk. per day Vaping Use Vaping Use: Never used Substance Use Topics Alcohol use: Yes Comment: has a glass of wine a day. Drug use: No ASSESSMENT/PLAN: 1. Acute cough - ICD9: 786.2, ICD10: R05.1 (primary diagnosis) - XR CHEST 2V FRONTAL/LAT * * * * Physician Interpretation * * * * EXAMINATION: CHEST RADIOGRAPH (2 VIEW FRONTAL AND LATERAL) CLINICAL HISTORY: Acute cough MQ: XC2_6 EXAM DATE/TIME: 12/18/2022 8:40 AM COMPARISON: 07/20/2009. RESULT: Lines, tubes, and devices: None. Lungs and pleura: There is hyperinflation of the lungs probably due to the patient's body habitus. Pulmonary emphysema cannot be excluded. There is no definite infiltrate. No consolidation. No lung mas (more content not included)... [facility] 12-18-2022 History of Presen t illness Narrative CC: Patient presents with: Cough: Congestion x 2 weeks HPI: Unique Wild is a 77 year old female who presents to the office with complaint of head congestion, cough, nonproductive, sore throat, and sinus symptoms for 2 weeks. Symptoms are staying the same. Associated symptoms includes nasal congestion and facial pain/pressure. Denies fever, nausea, vomiting , and diarrhea. Treatments tried include doxycycline with minor relief of symptoms. Sick contacts: unknown. History of asthma, frequent episodes of bronchitis, chronic bronchitis, bronchiectasis or COPD: asthma Smoker: No Seasonal/environmental allergies: No The ROS is otherwise negative. The patient's pmh, medications, allergies, and past visits are reviewed. PHYSICAL EXAM: BP 164/98 Pulse 100 Temp 36.8 C (98.3 F) Resp 20 Wt 39.5 kg (87 lb) SpO2 97% BMI 14.93 kg/m General appearance: alert, cooperative, pleasant, in no acute distress Head: Normocephalic Eyes: EOM's intact, conjunctiva pink and moist, no icterus, sclera white, non-injected Ears: Right ear: External ear/canal- Normal, TM - clear with good landmarks. Left ear: External ear/canal- Normal, TM - clear with good landmarks Oropharynx:mild erythema, without exudates present Heart: Negative. RRR without obvious murmur, gallop, or rubs. No ectopy. Lungs: clear to auscultation, without rales or wheeze, good air exchange PAST MEDICAL HISTORY Diagnosis Date ACTINIC KERATOSES (Premalignant AK's) 10/25/2007 Allergic rhinitis, cause unspecified 09/19/2007 Anxiety 09/14/2015 Arrhythmia Chronic obstructive pulmonary disease (COPD) ([facility]) Esotropia 2000 Essential hypertension, benign Ganglion of tendon sheath 10/25/2007 Internal hemorrhoids without mention of complication Irritable bowel syndrome with diarrhea 08/27/2015 Migraine headache 11/27/2011 Other osteoporosis Raynaud phenomenon Rheumatic fever without mention of heart involvement CHILD Smoker 07/20/2016 Started at age 23 up to 1 PPD and now smokes 1/2 a pack Snoring 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[facility]) 06/23/2014 Temporomandibular joint disorders, unspecified 08/14/2005 Underweight due to inadequate caloric intake 08/27/2015 PAST SURGICAL HISTORY Procedure Laterality Date COLONOSCOPY FLX DX W/COLLJ SPEC WHEN PFRMD 03/21/06 COLONOSCOPY FLX DX W/COLLJ SPEC WHEN PFRMD 03/10/2015 repeat 10 yrs HEMORRHOIDECTOMY INTERNAL RUBBER BAND LIGATIONS 04/21/15 HYSTEROSCOPY, DIAGNOSTIC (SEPARATE 12/26/2007 Hysteroscopy LAPAROSCOPY COLECTOMY PARTIAL W/ANASTOMOSIS 07-09-14 PAST SURGICAL HISTORY OF LEFT CYST ON WRIST TONSILLECTOMY PRIMARY/SECONDARY <AGE 13 VAGINAL HYSTERECTOMY UTERUS 250 GM/< 02/13/2008 Hysterectomy, vaginal - post menopausal bleeding, ovaries removed ALLERGIES Amoxicillin, Bextra [Valdecoxib], Environmental And Seasonal [Other], Erthromycin [Other], Seasonal Allergies, and Sulfa (Sulfonamide Antibiotics) MEDICATIONS doxycycline (VIBRA-TABS) 100 mg tablet Take 1 tablet by mouth twice daily for 7 days. albuterol HFA (PROAIR HFA) 90 mcg/actuation inhaler Inhale 2 Puffs as instructed every 4 hours as needed for wheezing/shortness of breath (1 inhaler). dicyclomine (BENTYL) 20 mg tablet Take 1 tablet by mouth every 6 hours. escitalopram oxalate (LEXAPRO) 5 mg tablet Take 1 tablet by mouth once daily. cetirizine (ALL DAY ALLERGY) 10 mg tablet Take 1 tablet by mouth once daily as needed. lisinopril (ZESTRIL) 30 mg tablet Take 1 tablet by mouth twice daily. rizatriptan (MAXALT) 10 mg tablet 1 po every 2 hrs as needed for migraine (max 30mg/24 hrs) multivitamins(DAILY MULTIVITAMIN TAB) Take one(1) tablet daily. diphenoxylate-atropine (LOMOTIL) 2.5-0.025 mg per tablet Take 1 tablet by mouth before meals and at bedtime for 180 days. FAMILY HISTORY Problem Relation Age of Onset Heart Father heart attack Cancer Mother breast Social History Tobacco Use Smoking status: Every Day Packs/day: 1.00 Years: 20.00 Total pack years: 20.00 Types: Cigarettes Smokeless tobacco: Never Tobacco comments: less than 1 pk. per day Vaping Use Vaping Use: Never used Substance Use Topics Alcohol use: Yes Comment: has a glass of wine a day. Drug use: No ASSESSMENT/PLAN: 1. Acute cough - ICD9: 786.2, ICD10: R05.1 (primary diagnosis) - XR CHEST 2V FRONTAL/LAT * * * * Physician Interpretation * * * * EXAMINATION: CHEST RADIOGRAPH (2 VIEW FRONTAL & LATERAL) CLINICAL HISTORY: Acute cough MQ: [id number] EXAM DATE/TIME: 12/18/2022 8:40 AM COMPARISON: 07/20/2009. RESULT: Lines, tubes, and devices: None. Lungs and pleura: There is hyperinflation of the lungs probably due to the patient's body habitus. Pulmonary emphysema cannot be excluded. There is no definite infiltrate. No consolidation. No lung mass. No pleural effusion. No pneumothorax. Cardiomediastinal silhouette: Normal cardiomediastinal silhouette. Bones and soft tissues: Unremarkable. IMPRESSION IMPRESSION: Stable exam with no definite acute radiographic abnormality. Furniture Servicer: NEREIDA Transcribe Date/Time: Dec 18 2022 8:42A 2. Sore throat - ICD9: 462, ICD10: J02.9 - STREP A MOLECULAR (POC) - neg Flonase and Tessalon Perles were prescribed Prescription instructions reviewed with patient as applicable. Potential red flag symptoms discussed with the patient. Reviewed appropriate action plan to take if red flag symptoms occur. Patient agreeable to treatment plan. Tamara Dubon APRN.HAZEL documented in this encounter [facility] 12-12-2022 Note HNO ID: [id number] Author: Sandeep Segura PA Service: ? Author Type: Physician Research Tech Type: Progress Notes Filed: 12/12/2022 11:14 AM Note Text: This note was created using [employer]. Subjective Unique Wild is a 77 year old female. HPI 77-year-old female presents for cough and congestion. Patient states she has had a cough for about 10 days. She states she is coughing up mucus. She is also had nasal congestion and sinus pressure. She has had low-grade fevers. No vomiting or diarrhea. She states she has allergies as well. She has history of COPD and is a current smoker. She smokes 1 pack/day. She has been using her inhalers at home. No chest pain or shortness of breath. PAST MEDICAL HISTORY Diagnosis Date ACTINIC KERATOSES (Premalignant AK's) 10/25/2007 Allergic rhinitis, cause unspecified 09/19/2007 Anxiety 09/14/2015 Arrhythmia Chronic obstructive pulmonary disease (COPD) (HCC) Esotropia 2000 Essential hypertension, benign Ganglion of tendon sheath 10/25/2007 Internal hemorrhoids without mention of complication Irritable bowel syndrome with diarrhea 08/27/2015 Migraine headache 11/27/2011 Other osteoporosis Raynaud phenomenon Rheumatic fever without mention of heart involvement CHILD Smoker 07/20/2016 Started at age 23 up to 1 PPD and now smokes 1/2 a pack Snoring 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 joint disorders, unspecified 08/14/2005 Underweight due to inadequate caloric intake 08/27/2015 PAST SURGICAL HISTORY Procedure Laterality Date COLONOSCOPY FLX DX W/COLLJ SPEC WHEN PFRMD 03/21/06 COLONOSCOPY FLX DX W/COLLJ SPEC WHEN PFRMD 03/10/2015 repeat 10 yrs HEMORRHOIDECTOMY INTERNAL RUBBER BAND LIGATIONS 04/21/15 HYSTEROSCOPY, DIAGNOSTIC (SEPARATE 12/26/2007 Hysteroscopy LAPAROSCOPY COLECTOMY PARTIAL W/ANASTOMOSIS 07-09-14 PAST SURGICAL HISTORY OF LEFT CYST ON WRIST TONSILLECTOMY PRIMARY/SECONDARY VAGINAL HYSTERECTOMY UTERUS 250 GM/< 02/13/2008 Hysterectomy, vaginal - post menopausal bleeding, ovaries removed ALLERGIES Amoxicillin, Bextra [Valdecoxib], Environmental And Seasonal [Other], Erthromycin [Other], Seasonal Allergies, and Sulfa (Sulfonamide Antibiotics) MEDICATIONS albuterol HFA (PROAIR HFA) 90 mcg/actuation inhaler Inhale 2 Puffs as instructed every 4 hours as needed for wheezing/shortness of breath (1 inhaler). dicyclomine (BENTYL) 20 mg tablet Take 1 tablet by mouth every 6 hours. cetirizine (ALL DAY ALLERGY) 10 mg tablet Take 1 tablet by mouth once daily as needed. lisinopril (ZESTRIL) 30 mg tablet Take 1 tablet by mouth twice daily. rizatriptan (MAXALT) 10 mg tablet 1 po every 2 hrs as needed for migraine (max 30mg/24 hrs) multivitamins(DAILY MULTIVITAMIN TAB) Take one(1) tablet daily. predniSONE (DELTASONE) 20 mg tablet Take 2 tablets by mouth once daily for 4 days. Take daily with food. doxycycline (VIBRA-TABS) 100 mg tablet Take 1 tablet by mouth twice daily for 7 days. escitalopram oxalate (LEXAPRO) 5 mg tablet Take 1 tablet by mouth once daily. (Patient not taking: Reported on 09/03/2022) diphenoxylate-atropine (LOMOTIL) 2.5-0.025 mg per tablet Take 1 tablet by mouth before meals and at bedtime for 180 days. FAMILY HISTORY Problem Relation Age of Onset Heart Father heart attack Cancer Mother breast Social History Tobacco Use Smoking status: Every Day Packs/day: 1.00 Years: 20.00 Total pack years: 20.00 Types: Cigarettes Smokeless tobacco: Never Tobacco comments: less than 1 pk. per day Vaping Use Vaping Use: Never used Substance Use Topics Alcohol use: Yes Comment: has a glass of wine a day. Drug use: No Review of Systems Constitutional: Positive for chills, fatigue and fever. HENT: Positive for congestion, sinus pressure and sinus pain. Negative for ear pain and sore throat. Respiratory: Positive for cough and wheezing. Negative for shortness of breath. Cardiovascular: Negative for chest pain. Gastrointestinal: Negative for abdominal pain, diarrhea and vomiting. Objective BP 130/74 Pulse 101 Temp 37.4 ?C (99.4 ?F) Wt 39.8 kg (87 lb 12.8 oz) SpO2 93% BMI 15.07 kg/m? Physical Exam Vitals and nursing note reviewed. Constitutional: General: She is not in acute distress. Appearance: Normal appearance. She is not toxic-appearing. HENT: Right Ear: Tympanic membrane and ear canal normal. Left Ear: Tympanic membrane and ear canal normal. Nose: Nose normal. Mouth/Throat: Mouth: Mucous membranes are moist. Pharynx: No oropharyngeal exudate or posterior oropharyngeal erythema. Eyes: Conjunctiva/sclera: Conjunctivae normal. Cardiovascular: Rate and Rhythm: Normal rate and regular rhythm. Pulmonary: Effort: Pulmonary effort is normal. Breath sounds: Wheezing (Mild) present. Neurological: Mental Status: She is alert. Assessment and Plan ASSESSMENT/PLAN: 1. COPD with exacerbation (HCC) - ICD9: 491.21, ICD10: J (more content not included)... [facility] 09-03-2022 Note HNO ID: [id number] Author: Lynn Fontaine APRN.[employer] Service: ? Author Type: Nurse Practitioner Type: Progress Notes Filed: 09/03/2022 8:53 AM Note Text: Subjective Cough Associated symptoms include wheezing. Pertinent negatives include no chest pain, no chills, no ear pain, no sore throat, no myalgias and no shortness of breath. Unique Wild is a 76 year old female who presents with allergy and asthma flare up. She has a history of asthma but hasn't had trouble with it in years. Was up all night coughing, states cough is productive. She has an inhaler at home but didn't think to use it. She has not had a fever or associated URI symptoms. Notes occasional wheezing and lots of sneezing recently. Feels the spring pollens have triggered her asthma. Review of Systems Constitutional: Negative for chills and fever. HENT: Negative for congestion, ear pain and sore throat. Respiratory: Positive for cough, sputum production and wheezing. Negative for shortness of breath. Cardiovascular: Negative for chest pain. Musculoskeletal: Negative for myalgias. Skin: Negative for itching and rash. BP 122/68 Pulse 110 Temp 36.3 ?C (97.4 ?F) (Tympanic) Resp 18 Wt 40.6 kg (89 lb 9.6 oz) SpO2 95% BMI 15.38 kg/m? PAST MEDICAL HISTORY Diagnosis Date ACTINIC KERATOSES (Premalignant AK's) 10/25/2007 Allergic rhinitis, cause unspecified 09/19/2007 Anxiety 09/14/2015 Arrhythmia Chronic obstructive pulmonary disease (COPD) (HCC) Esotropia 1999 Essential hypertension, benign Ganglion of tendon sheath 10/25/2007 Internal hemorrhoids without mention of complication Irritable bowel syndrome with diarrhea 08/27/2015 Migraine headache 11/27/2011 Other osteoporosis Raynaud phenomenon Rheumatic fever without mention of heart involvement CHILD Smoker 07/20/2016 Started at age 23 up to 1 PPD and now smokes 1/2 a pack Snoring 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 joint disorders, unspecified 08/14/2005 Underweight due to inadequate caloric intake 08/27/2015 PAST SURGICAL HISTORY Procedure Laterality Date COLONOSCOPY FLX DX W/COLLJ SPEC WHEN PFRMD 03/21/06 COLONOSCOPY FLX DX W/COLLJ SPEC WHEN PFRMD 03/10/2015 repeat 10 yrs HEMORRHOIDECTOMY INTERNAL RUBBER BAND LIGATIONS 04/21/15 HYSTEROSCOPY, DIAGNOSTIC (SEPARATE 12/26/2007 Hysteroscopy LAPAROSCOPY COLECTOMY PARTIAL W/ANASTOMOSIS 07-09-14 PAST SURGICAL HISTORY OF LEFT CYST ON WRIST TONSILLECTOMY PRIMARY/SECONDARY VAGINAL HYSTERECTOMY UTERUS 250 GM/< 02/13/2008 Hysterectomy, vaginal - post menopausal bleeding, ovaries removed ALLERGIES Amoxicillin, Bextra [Valdecoxib], Environmental And Seasonal [Other], Erthromycin [Other], Seasonal Allergies, and Sulfa (Sulfonamide Antibiotics) MEDICATIONS albuterol HFA (PROAIR HFA) 90 mcg/actuation inhaler Inhale 2 Puffs as instructed every 4 hours as needed for wheezing/shortness of breath (1 inhaler). cetirizine (ALL DAY ALLERGY) 10 mg tablet Take 1 tablet by mouth once daily as needed. lisinopril (ZESTRIL) 30 mg tablet Take 1 tablet by mouth twice daily. rizatriptan (MAXALT) 10 mg tablet 1 po every 2 hrs as needed for migraine (max 30mg/24 hrs) dicyclomine (BENTYL) 20 mg tablet Take 1 tablet by mouth every 6 hours. escitalopram oxalate (LEXAPRO) 5 mg tablet Take 1 tablet by mouth once daily. (Patient not taking: Reported on 09/03/2022) diphenoxylate-atropine (LOMOTIL) 2.5-0.025 mg per tablet Take 1 tablet by mouth before meals and at bedtime for 180 days. multivitamins(DAILY MULTIVITAMIN TAB) Take one(1) tablet daily. FAMILY HISTORY Problem Relation Age of Onset Heart Father heart attack Cancer Mother breast Social History Tobacco Use Smoking status: Every Day Packs/day: 1.00 Years: 20.00 Pack years: 20.00 Types: Cigarettes Smokeless tobacco: Never Tobacco comments: less than 1 pk. per day Vaping Use Vaping Use: Never used Substance Use Topics Alcohol use: Yes Comment: has a glass of wine a day. Drug use: No Objective Physical Exam Vitals and nursing note reviewed. Constitutional: Appearance: Normal appearance. HENT: Mouth/Throat: Pharynx: Uvula midline. Cardiovascular: Rate and Rhythm: Normal rate and regular rhythm. Heart sounds: Normal heart sounds. Pulmonary: Effort: Pulmonary effort is normal. No respiratory distress. Breath sounds: Examination of the right-lower field reveals wheezing. Examination of the left-lower field reveals wheezing. Wheezing (slight wheezing bilateral lung bases.) present. No rales. Musculoskeletal: Cervical back: Neck supple. Lymphadenopathy: Cervical: No cervical adenopathy. Skin: General: Skin is warm and dry. Findings: No erythema or rash. Neurological: Mental Status: She is alert. ASSESSMENT/PLAN: 1. Exacerbation of intermittent asthma, unspecified asthma severity - ICD9: 493.92, ICD10: J45.21 - PREDNISONE 20 MG TABLET - INHALATIONAL SPACI (more content not included)... [facility] 09-03-2022 Instructions Lynn Fontaine APRN.[facility] - 09/03/2022 8:52 AM EDT ASSESSMENT/PLAN: 1. Exacerbation of intermittent asthma, unspecified asthma severity - ICD9: 493.92, ICD10: J45.21 - PREDNISONE 20 MG TABLET - INHALATIONAL SPACING DEVICE - ALBUTEROL SULFATE HFA 90 MCG/ACTUATION AEROSOL INHALER - Follow-up with your PCP in 3-5 days if symptoms have not improved or sooner if symptoms worsen - Discussed red flags and need for immediate medical evaluation if any occur. - Discussed supportive care treatment with fluids, rest and analgesia. - Discussed expected course of illness Lynn Fontaine APRN.[employer] documented in this encounter [facility] 09-03-2022 History of Presen t illness Narrative Subjective Cough Associated symptoms include wheezing. Pertinent negatives include no chest pain, no chills, no ear pain, no sore throat, no myalgias and no shortness of breath. Unique Wild is a 76 year old female who presents with allergy and asthma flare up. She has a history of asthma but hasn't had trouble with it in years. Was up all night coughing, states cough is productive. She has an inhaler at home but didn't think to use it. She has not had a fever or associated URI symptoms. Notes occasional wheezing and lots of sneezing recently. Feels the spring pollens have triggered her asthma. Review of Systems Constitutional: Negative for chills and fever. HENT: Negative for congestion, ear pain and sore throat. Respiratory: Positive for cough, sputum production and wheezing. Negative for shortness of breath. Cardiovascular: Negative for chest pain. Musculoskeletal: Negative for myalgias. Skin: Negative for itching and rash. BP 122/68 Pulse 110 Temp 36.3 C (97.4 F) (Tympanic) Resp 18 Wt 40.6 kg (89 lb 9.6 oz) SpO2 95% BMI 15.38 kg/m PAST MEDICAL HISTORY Diagnosis Date ACTINIC KERATOSES (Premalignant AK's) 10/25/2007 Allergic rhinitis, cause unspecified 09/19/2007 Anxiety 09/14/2015 Arrhythmia Chronic obstructive pulmonary disease (COPD) (HCC) Esotropia 2000 Essential hypertension, benign Ganglion of tendon sheath 10/25/2007 Internal hemorrhoids without mention of complication Irritable bowel syndrome with diarrhea 08/27/2015 Migraine headache 11/27/2011 Other osteoporosis Raynaud phenomenon Rheumatic fever without mention of heart involvement CHILD Smoker 07/20/2016 Started at age 23 up to 1 PPD and now smokes 1/2 a pack Snoring 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 joint disorders, unspecified 08/14/2005 Underweight due to inadequate caloric intake 08/27/2015 PAST SURGICAL HISTORY Procedure Laterality Date COLONOSCOPY FLX DX W/COLLJ SPEC WHEN PFRMD 03/21/06 COLONOSCOPY FLX DX W/COLLJ SPEC WHEN PFRMD 03/10/2015 repeat 10 yrs HEMORRHOIDECTOMY INTERNAL RUBBER BAND LIGATIONS 04/21/15 HYSTEROSCOPY, DIAGNOSTIC (SEPARATE 12/26/2007 Hysteroscopy LAPAROSCOPY COLECTOMY PARTIAL W/ANASTOMOSIS 07-09-14 PAST SURGICAL HISTORY OF LEFT CYST ON WRIST TONSILLECTOMY PRIMARY/SECONDARY <AGE 13 VAGINAL HYSTERECTOMY UTERUS 250 GM/< 02/13/2008 Hysterectomy, vaginal - post menopausal bleeding, ovaries removed ALLERGIES Amoxicillin, Bextra [Valdecoxib], Environmental And Seasonal [Other], Erthromycin [Other], Seasonal Allergies, and Sulfa (Sulfonamide Antibiotics) MEDICATIONS albuterol HFA (PROAIR HFA) 90 mcg/actuation inhaler Inhale 2 Puffs as instructed every 4 hours as needed for wheezing/shortness of breath (1 inhaler). cetirizine (ALL DAY ALLERGY) 10 mg tablet Take 1 tablet by mouth once daily as needed. lisinopril (ZESTRIL) 30 mg tablet Take 1 tablet by mouth twice daily. rizatriptan (MAXALT) 10 mg tablet 1 po every 2 hrs as needed for migraine (max 30mg/24 hrs) dicyclomine (BENTYL) 20 mg tablet Take 1 tablet by mouth every 6 hours. escitalopram oxalate (LEXAPRO) 5 mg tablet Take 1 tablet by mouth once daily. (Patient not taking: Reported on 09/03/2022) diphenoxylate-atropine (LOMOTIL) 2.5-0.025 mg per tablet Take 1 tablet by mouth before meals and at bedtime for 180 days. multivitamins(DAILY MULTIVITAMIN TAB) Take one(1) tablet daily. FAMILY HISTORY Problem Relation Age of Onset Heart Father heart attack Cancer Mother breast Social History Tobacco Use Smoking status: Every Day Packs/day: 1.00 Years: 20.00 Pack years: 20.00 Types: Cigarettes Smokeless tobacco: Never Tobacco comments: less than 1 pk. per day Vaping Use Vaping Use: Never used Substance Use Topics Alcohol use: Yes Comment: has a glass of wine a day. Drug use: No Objective Physical Exam Vitals and nursing note reviewed. Constitutional: Appearance: Normal appearance. HENT: Mouth/Throat: Pharynx: Uvula midline. Cardiovascular: Rate and Rhythm: Normal rate and regular rhythm. Heart sounds: Normal heart sounds. Pulmonary: Effort: Pulmonary effort is normal. No respiratory distress. Breath sounds: Examination of the right-lower field reveals wheezing. Examination of the left-lower field reveals wheezing. Wheezing (slight wheezing bilateral lung bases.) present. No rales. Musculoskeletal: Cervical back: Neck supple. Lymphadenopathy: Cervical: No cervical adenopathy. Skin: General: Skin is warm and dry. Findings: No erythema or rash. Neurological: Mental Status: She is alert. ASSESSMENT/PLAN: 1. Exacerbation of intermittent asthma, unspecified asthma severity - ICD9: 493.92, ICD10: J45.21 - PREDNISONE 20 MG TABLET - INHALATIONAL SPACING DEVICE - ALBUTEROL SULFATE HFA 90 MCG/ACTUATION AEROSOL INHALER - Follow-up with your PCP in 3-5 days if symptoms have not improved or sooner if symptoms worsen - Discussed red flags and need for immediate medical evaluation if any occur. - Discussed supportive care treatment with fluids, rest and analgesia. - Discussed expected course of illness Lynn Fontaine APRN.HAZEL documented in this encounter [facility] 11-15-2021 History of Presen t illness Narrative POPULATION HEALTH NAVIGATION OUTREACH Action/FYI Spoke with the patient regarding scheduling a Wellness visit. The patient is no longer a [facility] Patient Pt identified by name and : YES, via phone Outreach Outcome/Action Spoke to patient or caregiver: No action required (information or reminder only) Did you use a PCP flex slot to schedule this appointment? N/A Reason for Outreach HCC or suspected condition Payer: Payor: MEDICARE / Plan: MEDICARE A AND B / Product Type: Medicare / Care Gap Reviewed:: Annual Wellness visit Reminder: Reminder note to check Health Maintenance for items below Health Maintenance items due: SPIROMETRY Never done SHINGRIX VACCINE(3 of 3) due on 12/05/2017 DEPRESSION SCREENING due on 04/22/2019 ADVANCE DIRECTIVE DISCUSSION Never done COVID-19 VACCINE(4 - Booster for Pfizer series) due on 07/04/2021 ANNUAL PCP TEAM CHRONIC DISEASE VISIT due on 07/07/2021 Message Sent to Practice: No Navigation Signature: Tory Amaro MA November 15, 2021 11:47 AM documented in this encounter [facility] 10-24-2021 History of Presen t illness Narrative POPULATION HEALTH NAVIGATION OUTREACH Action/FYI [id number] Pt identified by name and : YES, via phone Outreach Outcome/Action Spoke to patient or caregiver: Patient declined Did you use a PCP flex slot to schedule this appointment? No Reason for Outreach Care Gap or Scheduling/Wellness visits Payer: Payor: MEDICARE / Plan: MEDICARE A AND B / Product Type: Medicare / Care Gap Reviewed:: COPD/CKD/PCP PROJECT Reminder: Reminder note to check HealthCOPD/CKD/ Maintenance for items below Health Maintenance items due: SPIROMETRY Never done SHINGRIX VACCINE(3 of 3) due on 12/05/2017 DEPRESSION SCREENING due on 04/22/2019 MAMMOGRAM due on 04/28/2020 ADVANCE DIRECTIVE DISCUSSION Never done COVID-19 VACCINE(4 - Booster for Pfizer series) due on 07/04/2021 ANNUAL PCP TEAM CHRONIC DISEASE VISIT due on 07/07/2021 Message Sent to Practice: No Navigation Signature: Kia Mitchell October 24, 2021 3:35 PM documented in this encounter [facility] documented as of this encounter (statuses as of 10/24/2021) [facility] History of Past illness Narrative* Problem Noted Date Resolved Date Encounter for screening mammogram for breast can cer 03/20/2017 01/04/2021 Initial Medicare annual wellness visit 7 01/04/2021 Overview: last done: 03/20/2017.. Does not want physical in 2018 Screening for colon cancer 03/20/201701/04 Overview: Declines ifobt Other and unspecified capillary diseases 008 02/25/2012 TELANG///NEVUS, NON-NEOPLASTIC 01/24/2007 1 Inflamed seborrheic keratosis 02/27/2006 SOLAR LENTIGINES 02/27/2006 02/25/2012 CHR SOLAR SKIN DAMAGE NOS (ACTINIC DAMAGE) 02/0704/06/2012 Other seborrheic keratosis 02/07/200504/06 documented as of this encounter (statuses as of 11/15/2021) [facility] History of Past illness Narrative* Problem Noted Date Resolved Date Encounter for screening mammogram for breast can cer 03/20/2017 01/04/2021 Initial Medicare annual wellness visit 7 01/04/2021 Overview: last done: 03/20/2017.. Does not want physical in 2018 Screening for colon cancer 03/20/201701/04 Overview: Declines ifobt Other and unspecified capillary diseases 008 02/25/2012 TELANG///NEVUS, NON-NEOPLASTIC 01/24/2007 1 Inflamed seborrheic keratosis 02/27/2006 SOLAR LENTIGINES 02/27/2006 02/25/2012 CHR SOLAR SKIN DAMAGE NOS (ACTINIC DAMAGE) 02/0704/06/2012 Other seborrheic keratosis 02/07/200504/06 documented as of this encounter (statuses as of 09/03/2022) [facility] History of Past illness Narrative* Problem Noted Date Diagnosed Date Resolved Date Encounter for screening mamm ogram for breast cancer 03/20/2017 01/04/2021 Initial Medicare annual wellness visit 03/20/2017 01/04/2021 Overview: last done: 03/20/2017.. Does not want physical in 2018 Screening for colon cancer 03/20/2017 0 01/04/2021 Overview: Declines ifobt Other and unspecified capillary diseases 01/28/2008 02/25/2012 TELANG///NEVUS, NON-NEOPLASTIC 01/24/2007 02/25/2012 Inflamed seborrheic keratosis 02/27/2006 04/06/2012 SOLAR LENTIGINES 02/27/2006 02/25/2012 CHR SOLAR SKIN DAMAGE NOS (ACTINIC DAMAGE) 02/07/2005 04/06/2012 Other seborrheic keratosis 02/07/2005 1 06/06/2011 documented as of this encounter (statuses as of 12/18/2022) [facility] History of Past illness Narrative* Problem Noted Date Diagnosed Date Resolved Date Encounter for screening mamm ogram for breast cancer 03/20/2017 01/04/2021 Initial Medicare annual wellness visit 03/20/2017 01/04/2021 Overview: last done: 03/20/2017.. Does not want physical in 2018 Screening for colon cancer 03/20/2017 0 01/04/2021 Overview: Declines ifobt Other and unspecified capillary diseases 01/28/2008 02/25/2012 TELANG///NEVUS, NON-NEOPLASTIC 01/24/2007 02/25/2012 Inflamed seborrheic keratosis 02/27/2006 04/06/2012 SOLAR LENTIGINES 02/27/2006 02/25/2012 CHR SOLAR SKIN DAMAGE NOS (ACTINIC DAMAGE) 02/07/2005 04/06/2012 Other seborrheic keratosis 02/07/2005 1 06/06/2011 documented as of this encounter (statuses as of 01/23/2023) [facility] Diagnosis Exacerbation of intermittent asthma, unspecified asthma severity- Primary documented in this encounter [facility] Diagnosis Acute cough- Primary Sore throat Acute pharyngitis Rhinosinusitis Unspecified sinusitis (chronic) documented in this encounter [facility] Diagnosis Exacerbation of intermittent asthma, unspecified asthma severity Acute cough documented in this encounter [facility] Advance Directives No Advanced Directives Records FoundDocuments on File Type Date Recorded Patient Human Resources Professional Expl anation Advance Directive(s) 02/01/2010 12:50 PM Summary Purpose Family History No Family History Records Found Additional Source Comments Source Comments (unrecognize d section and content) In the event this informatio n is protected by the Federal Confidentiality of Alcohol and Drug Abuse Patient Records regulations: The Federal rules restrict any use of the information to criminally investigate or prosecute any alcohol or drug abuse patient.[facility] event this information is protected by the Federal Confidentiality of Alcohol and Drug Abuse Patient Records regulations: The Federal rules restrict any use of the information to criminally investigate or prosecute any alcohol or drug abuse patient.[facility] the event this information is protected by the Federal Confidentiality of Alcohol and Drug Abuse Patient Records regulations: The Federal rules restrict any use of the information to criminally investigate or prosecute any alcohol or drug abuse patient.[facility] the event this information is protected by the Federal Confidentiality of Alcohol and Drug Abuse Patient Records regulations: The Federal rules restrict any use of the information to criminally investigate or prosecute any alcohol or drug abuse patient.[facility] the event this information is protected by the Federal Confidentiality of Alcohol and Drug Abuse Patient Records regulations: The Federal rules restrict any use of the information to criminally investigate or prosecute any alcohol or drug abuse patient.[facility] Care Teams (unrecognized sec tion and content) Clinical Pathologist Relationship Specialty Start Date End Date Rony Ball MD [address], [place] [id number] PCP - General Internal Medicine 09/03/22 Clinical Pathologist Relationship Specialty Start Date End Date Umang Noguera MD [address], [place] [phone] PCP - General Internal Medicine 12/18/22 Clinical Pathologist Relationship Specialty Start Date End Date Umang Noguera MD [address], [place] [id number] PCP - General Internal Medicine 12/18/22 Reason for Visit (unrecogniz ed section and content) Reason Comments Cough Pt reported cough, w heezing x1 wk. Reason Comments Cough Congestion x 2 weeks Reason Comments Allergies INFORMATION SOURCE (unrecogn ized section and content) FOR RECORDS PERTAINING TO PATIENTS WHO ARE OR HAVE BEEN ENROLLED IN A CHEMICAL DEPENDENCY/SUBSTANCEABUSE PROGRAM, SOME INFORMATION MAY BE OMITTED. This clinical summary was aggregated from multiple sources. Caution should be exercised in using it in the provision of clinical care. This summary normalizes information from multiple sources, and as a consequence, information in this document may materially change the coding, format and clinical context of patient data. In addition, data may be omitted in some cases. CLINICAL DECISIONS SHOULD BE BASED ON THE PRIMARY CLINICAL RECORDS. [facility]. provides no warranty or guarantee of the accuracy or completeness of information in this document.
--- NOTE | 2023-05-28 11:40 | HP.PCM.HOS_ITS ---
[facility] - General General Date of Admission: 05/28/23 Date of Service: 05/28/23 Chief Complaint: Shortness of breath and cough sore throat for 5 to 7 days. [facility] Narrative RAFA WILD, is a 77 F with history of asthma came to ER for shortness of breath, cough and hypoxia 85% on room air; sent from urgent care. Patient is stated for last 2 months had intermittent asthma exacerbations but recent 1 is for 5 to 7 days.She has history of asthma and is on albuterol inhaler only. 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 She still smokes cigarettes although claims has cut down in the amount. Denies any fever or chills, she states he checks her temperature. Noticed loss of taste and smell but no nausea vomiting or diarrhea. In ED,Chest x-ray was done which shows marked inflation unchanged. No demonstrated acute pleural abnormality or parenchymal abnormality. Vitals, labs and imaging reviewed discussion assessment plan. Patient was given IV dexamethasone further admitted. [facility] Medical History Basal cell carcinoma (BCC) Eardrum rupture, right External otitis of left ear Polyp, vocal cord Home Medications lisinopril 30 mg tablet 30 mg PO BID BLOOD PRESSURE #180 tabs 05/29/22 [Rx Last Taken 05/28/23] Lactobacillus acidophilus (Acidophilus capsule) 1 cap PO DAILY [facility] 05/28/23 [History Last Taken 05/28/23] multivitamin 1 tab PO DAILY HEALTH MAINTENANCE 05/28/23 [History Last Taken 05/28/23] Allergy/AdvReac Type Severity Reaction Status Date / Time Sulfa (Sulfonamide Allergy Shortness Verified 05/28/23 09:04 Antibiotics) of breath valdecoxib [From Bextra] Allergy Unknown Verified 05/28/23 09:04 amoxicillin AdvReac Upset Verified 05/28/23 09:04 Stomach erythromycin base AdvReac Upset Verified 05/28/23 09:04 Stomach Family History Other Breast cancer Heart disease Surgical History H/O colectomy H/O hysterectomy for benign disease Social History Smoking Status: Current every day smoker tobacco type: cigarettes alcohol intake: current alcohol intake frequency: a few times a week Alcohol type: wine ROS ROS Narrative Constitutional: Reports fatigue and generalized weakness. No fever. HEENT: Reports systems reviewed and no addt'l complaints, except as documented Respiratory/Chest: As described in HPI. Mild wheezing. CVS: No chest pain or tightness or pressure. Gastrointestinal: Denies coffee ground emesis, hematemesis or vomiting Genitourinary: Denies burning urination or new urinary tract symptoms Musculoskeletal: Denies acute joint pain or limited range of motion. No acute injury Neurologic: Denies seizure-like symptoms. skin: No ulcer. No rash Endocrinology: Reports systems reviewed and no addt'l complaints, except as documented Hematologic/Lymphatic: Reports systems reviewed and no addt'l complaints, except as documented Rest 14 ROS are negative except as mentioned in HPI Vital Signs Vital Signs Vital Signs: 05/28/23 09:02 05/28/23 09:04 05/28/23 09:16 Temperature 97.7 F L 97.6 F L Temperature Source Temporal Temporal Pulse Rate 111 H 103 H Respiratory Rate 18 18 Respiratory Effort Short of Breath Respiratory Depth Normal Respiratory Pattern Normal Blood Pressure 176/115 H 157/71 H Blood Pressure Mean 135 99 Pulse Ox 85 92 Oxygen Delivery Method Room Air Room Air Room Air 05/28/23 10:11 05/28/23 10:11 05/28/23 10:24 Temperature Temperature Source Pulse Rate 84 92 Respiratory Rate 17 19 H Respiratory Effort Respiratory Depth Respiratory Pattern Normal Blood Pressure 148/72 H Blood Pressure Mean 97 Pulse Ox 94 94 Oxygen Delivery Method Room Air Weight Weight: 86 lb 5 oz Body Mass Index (BMI) 14.3 Physical Exam Narrative General: Alert, Oriented x3, Cooperative, low BMI 14.4 kg/m? HEENT: Atraumatic, PERRLA, EOMI, Normocephalic. Mild tenderness in throat area. Oral: Oral mucosa dry. No Gingival or Mucosal Lesions/ Ulcerations Neck: Supple, No JVD, Negative Carotid Bruits Lungs: Air entry diminished in bilateral lung bases. Bilateral wheezing and coarse crepitations. Mild hypoxia. Cardiovascular: Regular rate, Regular Rhythm, Normal S1, Normal S2, No murmurs Abdomen: Bowel Sounds Present, Soft, Non Tender, Non-Distended : No renal angle tenderness. No suprapubic tenderness. Extremities: No edema, Capillary Refill Less than 3 Seconds Skin: No rashes, No breakdown Musculoskeletal: No Tenderness to Palpation of Joints or Extremities Neurological: Cranial nerves II-XII grossly intact, DTR 2+/4. No acute focal neurological deficit. Psych/Mental Status: Normal Affect, Appropriate. Results Lab / Micro Data 05/28/23 09:15 05/28/23 09:15 Labs: Laboratory Results - last 24 hr 05/28/23 09:15: WBC 11.0, RBC 4.82, Hgb 16.4 H, Hct 49.1 H, MCV 101.9 H, MCH 34.0 H, MCHC 33.4, RDW Std Deviation 46.6 H, RDW Coeff of Anthony 12.4, Plt Count 254, MPV 9.5, Immature Gran % (Auto) 0.400, Neut % (Auto) 78.1 H, Lymph % (Auto) 11.1 L, Dyer % (Auto) 9.9, Eos % (Auto) 0.0, Baso % (Auto) 0.5, Absolute Neuts (auto) 8.6 H, Absolute Lymphs (auto) 1.23, Nucleated RBC % 0, Sodium 136, Potassium 3.9, Chloride 103, Carbon Dioxide 27.0, Anion Gap 6, BUN 17, Creatinin e 0.98, Estim Creat Clear Calc 30.18, Est GFR (MDRD) Af Amer 71, Est GFR (MDRD) Non-Af 59 L, BUN/Creatinine Ratio 17.3, Glucose 118 H, Calcium 9.7 Micro: Microbiology 05/28/23 09:50 Mucosa - Nasopharyngeal SARS-CoV-2, Influenza & RSV (PCR) - Final SARS-CoV-2 (COVID 19 PCR) Imagaing Radiology Impression Chest X-Ray 05/28/23 09:42 IMPRESSION: Stable cardiomegaly with hyperinflation. No active or acute cardiopulmonary disease. Electronically Signed: Darell Zuñiga MD at 10:39 EST Reading Location ID and State: [address] [place] [address] , Service support , Assessment & Plan Assessment/Plan (1) Asthma exacerbation: QUALIFIERS: Asthma severity: moderate Asthma persistence: persistent Qualified Code(s): J45.41 - Moderate persistent asthma with (acute) exacerbation (2) Hypoxia: PLAN: Plan This 77-year-old female being admitted for acute asthma exacerbation probably due to COVID-19 infection. 1. Acute asthma exacerbation due to COVID 19 infection: Patient is being admit [facility] to [facility] floor. Chest x-ray does not show acute abnormality. Twelve-lead EKG shows normal sinus rhythm 89 bpm. Patient is started on IV dexamethasone. DuoNeb every 4 hourly, Mucinex, incentive spirometry and Pep. Started on IV remdesivir as patient is mild hypoxic. COVID-19 PCR present but influenza and RSV negative. Sputum culture and urinary antigens ordered. Inflammatory markers ordered patient will need PFT as an outpatient. 2. Current smoker: Advised to quit it. Patient has she is cutting down on the amount of cigarettes. Nicotine replacement as desired by the patient. 3.Other chronic history is include history of basal cell carcinoma, resolved and vocal cord polyps: DVT prophylaxis: Moderate risk. Enoxaparin 30 mg subcu 12 hourly Living will/advanced directive/end of life care: Patient does have living will or advanced directive. His son near the bedside is power of family law attorney for health. After discussion of benefits/risks procedures involved with full code, DNR CC arrest and DNR CC, the patient and the son opted for full code. Her son said that CODE STATUS decision depends on the outcome of the illness but for now full code. Patient does want artificial life support including intubation, tube feed, ventilator and/chest compression, central venous catheter, vasopressor and DC shock if needed Total time spent in [id number] encounter in discussion of advanced directive 17 minutes. Charges/Coding Visit Charges Inpatient E&M: 17181 Init Hosp L3 Procedures Hospitalists Procedures: [id number] Advncd Care Plan 30 Min
[2023-05-28] MEDS: dexAMETHasone 10 MG/ML Vial 6 MG IV (11:56)
[2023-05-28 12:13] LABS: AST(SGOT) 37 U/L (15-37); Alanine Aminotransfer ALT/SGPT 23 U/L (13-56); Albumin, Serum 3.9 g/dL (3.2-5.0); Alkaline Phosphatase 141 U/L (45-117); Bilirubin, Direct 0.26 mg/dL (0.00-0.30); Globulin 3.9 g/dL (2.2-4.2); Magnesium 2.2 mg/dL (1.6-2.6); Protein, Total 7.8 g/dL (6.4-8.2)
[2023-05-28 12:15] LABS: Phosphorus 3.8 mg/dL (2.5-4.9)
--- OUTSIDE RECORDS SUMMARY | 2023-05-28 12:24 | XMS RPT_ITS | CCD ---
Author Name Unknown Address [address] [facility] [address] [place] [address] Organization [facility] Care Team Providers Care Vehicle Operator Name Role Phone Umang Noguera MD Primary Care Provider Unavailable Primary Care Provider UnavailRony Odom MD Primary Care Provider Umang Noguera MD Primary Care Provider RONY BALL Primary Care Unavailable UMANG NOGUERA Primary Care Unavailable UMANG NOGUERA Primary Care Unavailable UMANG NOGUERA Primary Care Unavailable TAMARA DUBON Referring Unavailable RONY BALL Primary Care Unavailable Allergies Allergy Classification Reported Allergen(s) Allergy Type Date of Onset Reaction(s) Facility (6 sources) Amoxicillin; Translations: [AMOXICILLIN] Drug Allergy 07-04-19 19 Diarrhea [facility] (6 sources) Seasonal allergy; Translations: [SEASONAL ALLERGIES] Allergy to substance 10-25-19 18 Other: See Comments [facility] (6 sources) Sulfonamides (Antibiotic); Translations: [SULFA (SULFONAMIDE ANTIBIOTICS)] Drug Intolerance 02-08-20 05 Intolerance [facility] (6 sources) valdecoxib; Translations: [VALDECOXIB] Drug Allergy 02-08-20 05 Intolerance [facility] (5 sources) environmental and seasonal [Other] Propensity to adverse reactions 02-08-20 05 Intolerance [facility] (5 sources) erthromycin [Other] Propensity to adverse reactions 02-08-20 05 GI Upset [facility] (1 source) OTHER; Translations: [OTHER] Propensity to adverse reactions (disorder) 02-08-20 05 [facility] [place] [facility] Medications Current Medications Medication Drug Class(es) [...] Drug Class(es) Dates Sig (Normalized) Sig (Original) [id number] 200 actuat albuterol 0.09 mg/actuat metered dose [...] 08:07-0400 Body temperature 98.29 [degF] Tamara Dubon APRN.GLOVE SEWER Work Phone: [facility] 12-18-2022 08:07-0400 Body weight 39.46 kg Tamara Dubon APRN.GLOVE SEWER Work Phone: [facility] 12-18-2022 08:07-0400 Diastolic blood pressure 98 mm[Hg] Tamara Dubon APRN.GLOVE SEWER Work Phone: [facility] 12-18-2022 08:07-0400 Heart rate 100 /min Tamara Dubon APRN.GLOVE SEWER Work Phone: [facility] 12-18-2022 08:07-0400 Respiratory rate 20 /min Tamara Dubon APRN.GLOVE SEWER Work Phone: [facility] 12-18-2022 08:07-0400 SaO2% (BldA) [Mass fraction] 97 % Tamara Dubon APRN.GLOVE SEWER Work Phone: [facility] 12-18-2022 08:07-0400 Systolic blood pressure 164 mm[Hg] Tamara Dubon APRN.GLOVE SEWER Work Phone: [facility] 09-03-2022 08:26-0400 Body temperature 97.39 [degF] Lynn Praisler-Wood SHEAR SETTER.GLOVE SEWER Work Phone: [facility] 09-03-2022 08:26-0400 Body weight 40.64 kg Lynn Praisler-Wood SHEAR SETTER.GLOVE SEWER Work Phone: [facility] 09-03-2022 08:26-0400 Diastolic blood pressure 68 mm[Hg] Lynn Praisler-Wood SHEAR SETTER.GLOVE SEWER Work Phone: [facility] 09-03-2022 08:26-0400 Heart rate 110 /min Lynn Praisler-Wood SHEAR SETTER.GLOVE SEWER Work Phone: [facility] 09-03-2022 08:26-0400 Respiratory rate 18 /min Lynn Praisler-Wood SHEAR SETTER.GLOVE SEWER Work Phone: [facility] 09-03-2022 08:26-0400 SaO2% (BldA) [Mass fraction] 95 % Lynn Praisler-Wood SHEAR SETTER.GLOVE SEWER Work Phone: [facility] 09-03-2022 08:26-0400 Systolic blood pressure 122 mm[Hg] Lynn Praisler-Wood SHEAR SETTER.GLOVE SEWER Work Phone: [facility] Encounters Encounter Date Encounter Type Care Provider Facility Start: 05-28-2023 End: 05-28-2023 ambulatory UMANG NOGUERA Facility:[facility] Start: 01-19-2023 Telephone encounter Umang guidry MD Work Phone: Internal Medicine Val Procedures Date Procedure Procedure Detail Performing Clinician Start: 12-18-2022 STREP A MOLECULAR (POC) Tamara Dubon APRN.GLOVE SEWER Work Phone: Start: 04-28-2019 Mammography No Pcp Start: 04-22-2018 Adult depression scr eening assessment No Pcp Start: 03-10-2015 Colonoscopy No Pcp Plan of Treatment Date Care Activity Detail Author Start: 10-11-2027 Urine microalbumin profile DTA P,TDAP,TD (3 - Td or Tdap) [facility] Start: 03-10-2025 Colonoscopy COLONOSCOPY [facility] Start: 03-10-2025 COLORECTAL CANCER SCREENING COLORECTAL CANCER SCREENING [facility] Start: 11-09-2023 LIPID SCREEN LIPID SCREEN [facility] Start: 09-04-2023 BP CONTROLLED (<130/80) BP CONTROLLE D (<130/80) [facility] Start: 06-04-2023 DIABETES SCREEN DIABETES SCREEN [facility] Start: 01-19-2023 Influenza vaccination C [facility] Start: 05-21-2022 ADVANCE DIRECTIVE DISCUSSION ADVANCE DIRECTIVE DISCUSSION [facility] Start: 05-21-2022 DEPRESSION ASSESSMENT DEPRESSION ASS ESSMENT [facility] Start: 04-05-2022 BP CONTROLLED (<130/80) BP CONTROLLE D (<130/80) [facility] Start: 01-19-2022 Influenza vaccination INFLUENZA (Sea son Ended) [facility] Start: 07-07-2021 ANNUAL PCP TEAM SECURITY SERVICES SPECIALIST NATHALIA DISEASE VISIT ANNUAL PCP TEAM CHRONIC DISEASE VISIT [facility] Start: 07-04-2021 COVID-19 VACCINE (4 - Booster for Pfizer series) COVID-19 VACCINE (4 - Booster for Pfizer series) [facility] Start: 05-21-2021 ADVANCE DIRECTIVE DISCUSSION ADVANCE DIRECTIVE DISCUSSION [facility] Start: 04-28-2021 COVID-19 VACCINE (4 - Booster for Pfizer series) COVID-19 VACCINE (4 - Booster for Pfizer series) [facility] Start: 04-28-2021 COVID-19 VACCINE (4 - Pfizer series) COVID-19 VACCINE (4 - Pfizer series) [facility] Start: 04-28-2020 Mammography MAMMOGRAM [facility] Start: 04-22-2019 Adult depression scr eening assessment DEPRESSION SCREENING [facility] Start: 12-05-2017 SHINGRIX VACCINE (3 of 3) SHINGRIX V ACCINE (3 of 3) [facility] Start: 1996 Influenza vaccination LUNG CANCER SC REENING [facility] Start: 09-28-1991 COLOGUARD (FIT-DNA) COLOGUARD (FIT-D NA) [facility] Start: 09-28-[address] COLONOGRAPHY [facility] Start: 09-28-1991 FECAL OCCULT BLOOD FECAL OCCULT BLOO D [facility] Start: 09-28-1991 SIGMOIDOSCOPY SIGMOIDOSCOPY [facility] Start: 1976 Zoledronic acid therapy ALPHA- 1 ANTITRYPSIN DEFICIENCY SCREENING [facility] Start: 1964 SPIROMETRY SPIROMETRY [facility] Immunizations Immunization Date Immunization Notes Care Provider Lamberto pickett 03-03-2021 COVID-19 vaccine, ag e 12+ yr (PFIZER-BIONTECH - PURPLE TOP) No [facility] Work Phone: 08-12-2020 COVID-19 vaccine, ag e 12+ yr (PFIZER-BIONTECH - PURPLE TOP) No [facility] Work Phone: 07-22-2020 COVID-19 vaccine, ag e 12+ yr (PFIZER-BIONTECH - PURPLE TOP) No [facility] Work Phone: 03-04-2020 influenza, high dose seasonal, preservative-free No [facility] 02-17-2019 influenza, high dose seasonal, preservative-free No [facility] Work Phone: 02-27-2018 influenza, high dose seasonal, preservative-free No [facility] Work Phone: 10-10-2017 tetanus toxoid, redu chapis diphtheria toxoid, and acellular pertussis vaccine, adsorbed No [facility] Work Phone: 10-10-2017 zoster vaccine recombinant No [facility] Work Phone: 02-17-2017 influenza, high dose seasonal, preservative-free No [facility] 09-19-2016 pneumococcal conjuga te vaccine, 13 valent No [facility] 03-18-2016 influenza, high dose seasonal, preservative-free No [facility] Work Phone: 03-01-2013 influenza virus vacc ine, unspecified formulation No [facility] 02-14-2013 pneumococcal polysaccharide vaccine, 23 valent No [facility] 02-10-2012 influenza virus vacc ine, unspecified formulation No [facility] Work Phone: 03-11-2011 influenza virus vacc ine, unspecified formulation No [facility] Work Phone: 09-16-2010 zoster vaccine, live No [facility] 02-22-2010 influenza virus vacc ine, unspecified formulation No [facility] 05-04-2009 novel influenza-H1N1 -09, preservative-free, injectable No [facility] Work Phone: 02-11-2009 influenza virus vacc ine, unspecified formulation No [facility] Work Phone: 07-16-2008 tetanus toxoid, redu chapis diphtheria toxoid, and acellular pertussis vaccine, adsorbed No [facility] 03-14-2008 influenza virus vacc ine, unspecified formulation No [facility] Work Phone: 03-14-2008 pneumococcal polysaccharide vaccine, 23 valent No [facility] Work Phone: 03-24-2006 influenza virus vacc ine, unspecified formulation No [facility] Work Phone: 03-30-2005 influenza virus vacc ine, unspecified formulation No [facility] Work Phone: Payers Date Payer Category Payer Unknown [facility] 2ND xx [id number] 2020-Present [phone] [address] [address] [place] [address] Indemnity [id number] 2020 Unknown [employer] 2ND xx [id number] 2020-Present [phone] [address] [address] [place] [address] Indemnity [id number] 2020 Unknown [id number] 2017 Medicare MEDICARE MEDICAR E A AND B [id number] 2017-Present [phone] [address] [address] [place] [address] Medicare [id number] 2017 Medicare MEDICARE MEDICAR E A AND B [id number] 2017-Present [phone] [place] [address] Medicare [id number] 2017 Medicare [id number] Social History Date Type Detail Facility Start: 09-03-2022 Tobacco smoking stat us NHIS Smokes tobacco daily [facility] History of tobacco use Cigarette Smoker [facility] Start: 09-20-2020 End: 12-18-2022 Alcohol intake Current drinker of alcohol (finding) [facility] Start: 07-20-2016 History SDOH Alcohol Comment has a glass of wine a day. [facility] Start: 1945 Sex Assigned At Not on file C [facility] Start: 04-25-2020 End: 09-03-2022 Cigarettes smoked current (pack per day) - Reported 1 [facility] Start: 09-03-2022 Tobacco use and exposure Smoke less tobacco non-user [facility] Start: 09-03-2022 Tobacco Comment less than 1 pk. per day [facility] Start: 04-25-2020 End: 12-18-2022 Tobacco use panel [facility] Adult Depression Scr eening Assessment 0 [facility] Clinical Notes 03-20-2017 to 05-28-2023 Telephone Encounter - Umang Noguera MD - 01/21/2023 1:04 AM EDTTelephone Encounter - Lorrie Reyes - 01/19/2023 9:15 AM Tamara Lomas APRN.CNP - 12/18/2022 8:23 AM EDT Note Date & Type Note Facility 05-28-2023 Note HNO ID: [id number] Author: TAMARA DUBON APRN.HAZEL Service: ? Author [...] Patient prefers that her son take her. [facility] 01-21-2023 Miscellaneous Notes The following approved medication [...] Please advise and return her call at [phone] or cell phone [phone] [facility] documented in this encounter [facility] 12-18-2022 Note HNO ID: [id number] Author: Janina Sandoval RT(R) Service: Radiology Author [...] RT Nelly(R) December 18, 2022 8:33 AM [facility] 12-18-2022 Note HNO ID: [id number] Author: Tamara Dubon APRN.GLOVE SEWER Service: ? Author Type: Nurse Practitioner Type: [...] No lung mas (more content not included)... [facility] 12-18-2022 History of Presen t illness Narrative [...] 09/14/2015 Arrhythmia Chronic obstructive pulmonary disease (COPD) ([facility]) Esotropia 2000 Essential hypertension, benign Ganglion of tendon sheath 10/25/2007 Internal hemorrhoids without mention of complication Irritable bowel syndrome with diarrhea 08/27/2015 Migraine headache 11/27/2011 Other osteoporosis Raynaud phenomenon Rheumatic fever without mention of heart involvement CHILD Smoker 07/20/2016 Started at age 23 up to 1 PPD and now smokes 1/2 a pack Snoring 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[facility]) 06/23/2014 Temporomandibular joint disorders, unspecified 08/14/2005 Underweight [...] exam with no definite acute radiographic abnormality. [employer] Office Instructor: NEREIDA Transcribe Date/Time: Dec 18 2022 8:42A 2. Sore throat - ICD9: 462, ICD10: J02.9 - STREP A MOLECULAR (POC) - neg Flonase and Tessalon Perles were prescribed Prescription instructions reviewed with patient as applicable. Potential red flag symptoms discussed with the patient. Reviewed appropriate action plan to take if red flag symptoms occur. Patient agreeable to treatment plan. Tamaar Dubon APRN.HAZEL documented in this encounter [facility] 12-12-2022 Note HNO ID: [id number] Author: Sandeep Segura PA Service: ? Author Type: Physician Popcorn Vendor Type: Progress Notes Filed: 12/12/2022 11:14 AM Note Text: This note was created using QThru. Subjective Uinque Wild is a 77 year old female. [...] 491.21, ICD10: J (more content not included)... [facility] 09-03-2022 Note HNO ID: [id number] Author: Lynn Fontaine APRN.GLOVE SEWER Service: ? Author Type: Nurse Practitioner Type: [...] - INHALATIONAL SPACI (more content not included)... [facility] 09-03-2022 Instructions Lynn Fontaine APRN.[facility] - 09/03/2022 8:52 AM EDT ASSESSMENT/PLAN: 1. [...] Discussed expected course of illness Lynn Fontaine APRN.GLOVE SEWER documented in this encounter [facility] 09-03-2022 History of Presen t illness [...] Lynn Fontaine APRN.HAZEL documented in this encounter [facility] 11-15-2021 History of Presen t illness Narrative POPULATION HEALTH NAVIGATION OUTREACH Action/FYI Spoke with the patient regarding scheduling a Wellness visit. The patient is no longer a [facility] Patient Pt identified by name and [...] 2021 11:47 AM documented in this encounter [facility] 10-24-2021 History of Presen t illness Narrative POPULATION HEALTH NAVIGATION OUTREACH Action/FYI [id number] Pt identified by name and : YES, [...] 2021 3:35 PM documented in this encounter [facility] documented as of this encounter (statuses as of 10/24/2021) [facility]10-[facility]2017 History of Past illness Narrative* Problem [...] of this encounter (statuses as of 11/15/2021) [facility] History of Past illness Narrative* Problem [...] of this encounter (statuses as of 09/03/2022) [facility] History of Past illness Narrative* Problem [...] of this encounter (statuses as of 12/18/2022) [facility] History of Past illness Narrative* Problem [...] of this encounter (statuses as of 01/23/2023) [facility] Diagnosis Exacerbation of intermittent asthma, unspecified asthma severity- Primary [facility] Diagnosis Acute cough- Primary Sore throat Acute pharyngitis Rhinosinusitis Unspecified sinusitis (chronic) [facility] Diagnosis Exacerbation of intermittent asthma, unspecified asthma severity Acute cough documented in this encounter [facility] Advance Directives No Advanced Directives Records FoundDocuments on File Type Date Recorded Patient Director Of Student Affairs Expl anation Advance Directive(s) 02/01/2010 12:50 PM [...] or prosecute any alcohol or drug abuse patient.[facility] the event this information is protected by the Federal Confidentiality of Alcohol and Drug Abuse Patient Records regulations: The Federal rules restrict any use of the information to criminally investigate or prosecute any alcohol or drug abuse patient.[facility] the event this information is protected by the Federal Confidentiality of Alcohol and Drug Abuse Patient Records regulations: The Federal rules restrict any use of the information to criminally investigate or prosecute any alcohol or drug abuse patient.[facility] the event this information is protected by the Federal Confidentiality of Alcohol and Drug Abuse Patient Records regulations: The Federal rules restrict any use of the information to criminally investigate or prosecute any alcohol or drug abuse patient.[facility] the event this information is protected by the Federal Confidentiality of Alcohol and Drug Abuse Patient Records regulations: The Federal rules restrict any use of the information to criminally investigate or prosecute any alcohol or drug abuse patient.[facility] Care Teams (unrecognized sec tion and content) Vehicle Operator Relationship Specialty Start Date End Date Rony Ball MD [address] [place], [place] [id number] PCP - General Internal Medicine 09/03/22 Vehicle Operator Relationship Specialty Start Date End Date Umang Noguera MD [address] [place], [place] [id number] PCP - General Internal Medicine 12/18/22 Vehicle Operator Relationship Specialty Start Date End Date Umang Noguera MD [address] [place], [place] [id number] PCP - General Internal Medicine 12/18/22 Reason [...] BE BASED ON THE PRIMARY CLINICAL RECORDS. [facility] [employer] [facility]. provides no warranty or guarantee of the accuracy or completeness of information in this document.
[2023-05-28 13:34] LABS: BNP,B-Type NATRIURETIC PEPTIDE 82.8 pg/mL (0-100)
[2023-05-28 13:46] LABS: D-Dimer Quantitative (DVT/PE) 1.31 FEU/ug/m (0.27-0.49)
[2023-05-28 13:48] LABS: CPK Total, Creatine Kinase 64 U/L (26-192)
[2023-05-28 13:51] LABS: International Normalized Ratio 1.1; Prothrombin Time (Protime)PT. 13.7 SECONDS (11.7-14.9)
[2023-05-28 13:53] LABS: Fibrinogen 533 mg/dl (203-444)
--- NOTE | 2023-05-28 13:53 | VDLE_ITS ---
Reason For Study: Elevated D-dimer, 1.31 RIGHT LEFT GSV is normal. GSV is normal. CFV is compressible. CFV is compressible. FV is compressible. FV is compressible. PopV is compressible. PopV is compressible. T/P Trunk is compressible. T/P Trunk is compressible. PTV is compressible. PTV is compressible. RT PerV is compressible. LT PerV is compressible. Procedure This is a venous duplex using B-mode, color flow and spectral Doppler. Exam performed portable in patient room. The exam was abbreviated due to the COVID 19 protocol. A preliminary report was called and/or faxed to Tierney MARIANO. VL/Venous Duplex US - José Extrem Interpretation Summary Deep veins of the bilateral lower extremities are patent and compressible segme ntally. There is no evidence of bilateral lower extremity deep vein thrombosis. The bilateral great saphenous veins appear patent and compressible segmentally. Abbreviated exam due to COVID infection Ordering Physician: Dimitri Dye Referring Physician: Cait Noguera M.D. Performed By: Liza Cobb RVT
[2023-05-28 13:56] LABS: Lactic Acid 1.3 mmol/L (0.4-1.9)
[2023-05-28 14:24] LABS: Procalcitonin < 0.04 ng/mL (0.00-0.09)
[2023-05-28] MEDS: 0.9% Saline Lock 10 ML Syringe IV (14:27)
[2023-05-28] MEDS: Remdesivir 200 MG in 0.9% Normal Saline (250mL Bag) 210 ML 250 MG IV (14:28)
[2023-05-28] MEDS: Lactated Ringers 1,000 ML 100 ML IV (16:01)
[2023-05-29 02:01] VITALS: BMI 14.8
[2023-05-29 03:58] VITALS: BP 141/86; PULSE 85; RESP 18; TEMP 36.6; O2SAT 95
[2023-05-29 06:49] LABS: Absolute Lymphocyte Count 0.77 X10^3/uL (0.83-4.51); Basophil# 0.01 X10^3/uL; Basophil% 0.1 % (0-1); Hematocrit 39.7 % (37-47); Hemoglobin 13.4 g/dL (12.0-15.0); Lymphocyte # 0.77 X10^3/ul (0.83-4.51); Lymphocyte % 10.2 % (19-41); Mean Corp Hgb Conc 33.8 g/dL (32-36); Mean Corpuscular Hgb 33.7 pg (27.0-32.0); Mean Corpuscular Volume 99.7 fL (81-99); Mean Platelet Vol. 9.6 fl (6.2-12.0); Monocyte# 0.77 X10^3/uL; Monocyte% 10.2 % (0-10); NRBC Flagged by Analyzer 0 % (0-5); Neutrophil % 79.2 % (47-70); Platelet Count 240 K/mm3 (150-450); RBC Distribution Width SD 44.6 fl (35.1-43.9); Red Blood Count 3.98 M/mm3 (4.2-5.4); White Blood Count 7.6 K/mm3 (4.4-11.0)
[2023-05-29 07:13] LABS: ALB/GLOB Ratio 0.9 RATIO (0.9-2.4); AST(SGOT) 16 U/L (15-37); Alanine Aminotransfer ALT/SGPT 14 U/L (13-56); Albumin, Serum 2.9 g/dL (3.2-5.0); Alkaline Phosphatase 99 U/L (45-117); Anion Gap 4 (5-15); BUN 21 mg/dL (7-18); BUN/Creat Ratio 37.4 RATIO (10-20); Calcium,Total 8.9 mg/dL (8.5-10.1); Chloride 109 mmol/L (98-107); Creatinine, Serum 0.56 mg/dL (0.55-1.02); EST Glomerular Filtration Rate 111 mL/min (>60); Est Glom Filt Rate - Afr Amer 135 mL/min (>60); Estimated Creatinine Clearance 29.54 ml/min; Globulin 3.2 g/dL (2.2-4.2); Glucose 89 mg/dL (74-106); Potassium 4.3 mmol/L (3.5-5.1); Protein, Total 6.1 g/dL (6.4-8.2); Sodium Level 141 mmol/L (136-145)
[2023-05-29 07:40] VITALS: PULSE 85; RESP 20; O2SAT 93
[2023-05-29] MEDS: Ipratropium/Albuterol Sulfate 3 ML AMPUL.NEB INHALATION ×2 (07:40→10:34)
--- NOTE | 2023-05-29 08:50 | DCINST_ITS ---
Discharge Instructions Diet Discharge Diet: No restrictions Activity Discharge Activity: Return to Normal Activity Weight Bearing Status: Weight bearing as tolerated Dressing / Incision Call your doctor if you observe: Fever of 101 or Higher, Coldness, Increased Pain, Numbness or Tingling, Change in Color, Inability to urinate, Inability to have a bowel movement, Using more than 1 pad per hour, Shortness of breath, Dizziness, Fainting spells, Swelling in the ankles, Chest pain, Prolonged hiccupping, Increased palpitations (irregular heartbeat) and Calf discomfort Follow Up Care When: IN 2 WEEKS Test Results: Test results from this visit will be discussed in further detail at your follow- up appointment, if applicable. Discharge Plan Admission Admit Date/Time: 05/28/23 11:32 Primary Reason for Your Visit: Asthma excerbation Attending Provider: Dimitri Dye Primary Care Provider: Cait Noguera Discharge Orders/Prescriptions Prescriptions: New dexamethasone 6 mg tablet 6 mg PO DAILY Qty: 8 0RF pseudoephedrine-guaifenesin [Mucus D] 120-1,200 mg tablet extended release 12 hr 1 tab PO Q12H PRN (Reason: cold symptoms) 7 Days Qty: 14 0RF albuterol sulfate 90 mcg/actuation HFA aerosol inhaler 2 puff inhalation Q6H PRN (Reason: shortness of breath or wheezing) Qty: 8.5 0RF Continued Acidophilus Capsule 1 cap PO DAILY multivitamin Tablet 1 tab PO DAILY Changed lisinopril 30 mg tablet 20 mg PO BID Qty: 180 3RF Referrals / Follow Up: Rea Proctor MD [Med Staff - Recovery Engineer] - Cait Noguera MD [Primary Care Provider] - Juanito Chowdary DO [Med Staff - Active Staff] - Within 1 Month (for asthma, hypoxia) Disposition Disposition (needs filled in before D/C Order can be placed): Home, Self Care
[2023-05-29 09:53] VITALS: BP 118/96; PULSE 93; RESP 18; TEMP 36.9; O2SAT 90
[2023-05-29] MEDS: Remdesivir 100 MG in 0.9% Normal Saline (250mL Bag) 230 ML 250 MG IV (10:11)
[2023-05-29] MEDS: 0.9% Saline Lock 10 ML Syringe IV (10:11)
[2023-05-29] MEDS: dexAMETHasone 10 MG/ML Vial 6 MG IV (10:11)
[2023-05-29 10:34] VITALS: PULSE 88; RESP 20
--- NOTE | 2023-05-29 10:55 | CASEMGMT ---
RN EBONI Face to Face with patient for initial transition planning/care coordination assessment. RN CM introduced self and role at [facility]. Patient lying in bed, alert and oriented. Patient willing to participate in assessment and is able to answer all questions appropriately. Care providers, pharmacy, and demographics verified. Patient wishes to discharge home, denies need for home health at this time. Patient states she has no further needs or concerns at this time. CM to follow for discharge planning needs that may arise. PCP: [facility] Specialists: Cain degree clerk; TORREY [place] Preferred Pharmacy: [facility] Insurance: Irina BELLAMY Prescription Benefit: yes Living Will/HPOA: yes, son Will Kennedy LNOK: son Living Arrangements: Patient lives alone in a 2 story home. Patient is independent and able to ambulate stairs. Transportation: self, son DME/HHC: Patient has raised toilet at home. No previous HHC or SNF. Will monitor for home oxygen at discharge. Patient prefers DME from [facility]. Disposition Plan: Patient to discharge home with family support and follow-up plans in place. Will monitor for home oxygen Liza DRAPER, RN, CM
[2023-05-29 11:57] VITALS: O2SAT 87; O2SAT 90; O2SAT 94
--- NOTE | 2023-05-29 12:17 | PCM.DC.SUM ---
Providers Date of Admission: 05/28/23 Date of Discharge: 05/29/23 Primary Care Physician: Dr. Cait Noguera MD Reason For Visit: COVID 19 Diagnosis Discharge Diagnosis (1) Asthma exacerbation: Status: Acute Code(s): J45.901 - Unspecified asthma with (acute) exacerbation Qualifiers: Asthma persistence: persistent Asthma severity: moderate Qualified Code(s): J45.41 - Moderate persistent asthma with (acute) exacerbation (2) Hypoxia: Status: Acute Code(s): R09.02 - Hypoxemia Plan This 77-year-old female being admitted for acute asthma exacerbation probably due to COVID-19 infection. 1. Acute asthma exacerbation due to COVID 19 infection: Patient is being admitted to [facility] floor. Chest x-ray does not show acute abnormality. Twelve-lead EKG shows normal sinus rhythm 89 bpm. Patient is started on IV dexamethasone. DuoNeb every 4 hourly, Mucinex, incentive spirometry and Pep. Started on IV remdesivir as patient is mild hypoxic. COVID-19 PCR present but influenza and RSV negative. Sputum culture and urinary antigens ordered. Inflammatory markers ordered patient will need PFT as an outpatient. 05/29:Patient blood pressure is controlled. Respiratory rate 18-20 department. Shortness of breath is improved. Requires 2 L of oxygen at rest. Patient wants to go home and discharged on dexamethasone, Tessalon Perles and albuterol inhaler. Advised to follow-up in pulmonary clinic in 1 month. Continue incentive spirometry/PEP for at least 1 week. Patient is ambulatory in home and in the community and requires home oxygen with portability for hypoxia most likely due to asthma exacerbation from COVID infection. 2. Current smoker: Advised to quit it. Patient has she is cutting down on the amount of cigarettes. Nicotine replacement as desired by the patient. 3.Other chronic history is include history of basal cell carcinoma, resolved and vocal cord polyps: 4. Hypertension: She is on lisinopril 30 mg twice daily. Discussed the dose of lisinopril 30 mg twice daily and patient said this is the dose her PCP prescribed and she is doing good on that. She is further that she has whitecoat hypertension. I said this is not the recommended dose with maximum lisinopril 40 mg daily. This is a risk for ELIZABETH. Patient will check with her PCP. She also does not like Mucinex therefore prescription for Tessalon Perles given. DVT prophylaxis: Moderate risk. Enoxaparin 30 mg subcu 12 hourly Discharge medication reconciliation done. Discharge follow-up instructions completed. Discharge process discussed with the patient and all questions were answered to patient's satisfaction. Follow with PCP in 1 to 2 weeks Total time spent, exact 35 minutes on discharge meds reconciliation, examination, coordination of care with nurses and ancillary staff, review of imaging and blood test and discussion with the patient on follow-up instructions. Living will/advanced directive/end of life care: Patient does have living will or advanced directive. His son near the bedside is power of commonwealth attorney for health. After discussion of benefits/risks procedures involved with full code, DNR CC arrest and DNR CC, the patient and the son opted for full code. Her son said that CODE STATUS decision depends on the outcome of the illness but for now full code. Patient does want artificial life support including intubation, tube feed, ventilator and/chest compression, central venous catheter, vasopressor and DC shock if needed Medications at Discharge Home Medications Lactobacillus acidophilus (Acidophilus capsule) 1 cap PO DAILY GUT HEALTH 05/28/23 multivitamin 1 tab PO DAILY HEALTH MAINTENANCE 05/28/23 albuterol sulfate 90 mcg/actuation aerosol inhaler 2 puff inhalation Q6H PRN shortness of breath or wheezing #8.5 grams 05/29/23 benzonatate 200 mg capsule 200 mg PO TID PRN cough #30 caps 05/29/23 dexamethasone 6 mg tablet 6 mg PO DAILY #8 tabs 05/29/23 lisinopril 30 mg tablet 30 mg PO BID BLOOD PRESSURE #180 tabs 05/29/23 Physical Exam Narrative Seen and examined. Patient is on 2 L of oxygen. She wants to go home. She said her shortness of breath is better. Physical exam General: Alert, Oriented x3, Cooperative, low BMI 14.4 kg/m? HEENT: Atraumatic, PERRLA, EOMI, Normocephalic. Mild tenderness in throat area. Oral: Oral mucosa dry. No Gingival or Mucosal Lesions/ Ulcerations Neck: Supple, No JVD, Negative Carotid Bruits Lungs: Air entry diminished in bilateral lung bases. Wheezing has gotten better. No dyspnea on exertion. Mild hypoxia. Cardiovascular: Regular rate, Regular Rhythm, Normal S1, Normal S2, No murmurs Abdomen: Bowel Sounds Present, Soft, Non Tender, Non-Distended : No renal angle tenderness. No suprapubic tenderness. Extremities: No edema, Capillary Refill Less than 3 Seconds Skin: No rashes, No breakdown Musculoskeletal: No Tenderness to Palpation of Joints or Extremities Neurological: Cranial nerves II-XII grossly intact, DTR 2+/4. No acute focal neurological deficit. Psych/Mental Status: Normal Affect, Appropriate. Medical Records Data Medical Nutrition Assessment Dietitian: Malnutrition Criteria Met Start: 05/28/23 16:56 Freq: Status: Active Protocol: Document 05/28/23 17:13 RMA (Rec: 05/28/23 17:13 RMA [id number]) Nutrition Malnutrition Evidence of Malnutrition Exists Yes Malnutrition (severe): Acute Illness/Injury,Chronic Evidenced By Suboptimal Energy Intake ( Severe),Weight Loss (Severe) Clinical Problem Chronic Disease or Condition Related Malnutrition Etiology Severe protein-calorie malnutrition in the context of acute on chronic disease related to inadequate oral/ energy intake Signs/Symptoms as evidenced by ~13% unintentional weight loss x past 6-12 months, BMI 14.2, PO meeting less than 50% estimated nutrition needs x 6- 12 months Status Active Problem Recommendation Dietitian Recommendations/Changes Will continue liberalized regular diet and strongly encouraged PO at meals. Will d/c ensure plus HP w/ medpass as ordered due to pt's refusal/dislike. Will add 240mL ensure clear TID w/ meals for tolerance, pt agrees to try for acceptance. May need to consider enteral nutrition support if PO remains inadequate and weight continues to decline. Weight / BMI Weight Weight: 86 lb 3.212 oz Body Mass Index (BMI) 14.8 ABG / Lab / Microbiology Data 05/29/23 06:20 05/29/23 06:20 Laboratory: Laboratory Results - last 24 hr 05/28/23 09:15: Total Creatine Kinase 64, C-React Prot Ext Range 37.90 H, B-Natriuretic Peptide 82.8 05/28/23 13:23: PT 13.7, INR 1.1, Fibrinogen 533 H, D-Dimer Quant (PE/DVT) 1.31 H*, Lactic Acid 1.3, Procalcitonin < 0.04 05/29/23 06:20: WBC 7.6, RBC 3.98 L, Hgb 13.4, Hct 39.7, MCV 99.7 H, MCH 33.7 H, MCHC 33.8, RDW Std Deviation 44.6 H, RDW Coeff of Anthony 12.0, Plt Count 240, MPV 9.6, Immature Gran % (Auto) 0.300, Neut % (Auto) 79.2 H, Lymph % (Auto) 10.2 L, [place] % (Auto) 10.2 H, Eos % (Auto) 0.0, Baso % (Auto) 0.1, Absolute Neuts (auto) 6.0, Absolute Lymphs (auto) 0.77 L, Nucleated RBC % 0, Sodium 141, Potassium 4.3, Chloride 109 H, Carbon Dioxide 28.0, Anion Gap 4 L, BUN 21 H, Creatinine 0.56, Estim Creat Clear Calc 29.54, Est GFR (MDRD) Af Amer 135, Est GFR (MDRD) Non-Af 111, BUN/Creatinine Ratio 37.4 H, Glucose 89, Calcium 8.9, Total Bilirubin 0.60, AST 16, ALT 14, Alkaline Phosphatase 99, Total Protein 6.1 L, Albumin 2.9 L, Globulin 3.2, Albumin/Globulin Ratio 0.9 Microbiology: Microbiology 05/28/23 16:30 Urine, Clean Catch Streptococcus pneumoniae Antigen (M - Final 05/28/23 16:30 Urine, Clean Catch Legionella Antigen - Final 05/28/23 14:40 Mucosa - Throat Streptococcus pyogenes (PCR) - Final 05/28/23 09:50 Mucosa - Nasopharyngeal SARS-CoV-2, Influenza & RSV (PCR) - Final SARS-CoV-2 (COVID 19 PCR) Radiography Diagnostic Testing: Radiology Impression Venous Doppler Study 05/28/23 13:53 Interpretation Summary Deep veins of the bilateral lower extremities are patent and compressible segmentally. There is no evidence of bilateral lower extremity deep vein thrombosis. The bilateral great saphenous veins appear patent and compressible segmentally. Abbreviated exam due to COVID infection Ordering Physician: Dimitri Dye Referring Physician: Cait Noguera M.D. Performed By: Liza Cobb RVT D/C Instructions Discharge Diet: No restrictions Weight Bearing Status: Weight bearing as tolerated Call your doctor if you observe: Fever of 101 or Higher, Coldness, Increased Pain, Numbness or Tingling, Change in Color, Inability to urinate, Inability to have a bowel movement, Using more than 1 pad per hour, Shortness of breath, Dizziness, Fainting spells, Swelling in the ankles, Chest pain, Prolonged hiccupping, Increased palpitations (irregular heartbeat) and Calf discomfort When: IN 2 WEEKS Meaningful Use Info Meaningful Use Diagnoses (Choose all that apply): None applicable Discharge Plan Admission Admit Date/Time: 05/28/23 11:32 Primary Reason for Your Visit: Asthma excerbation Attending Provider: Dimitri Dye Primary Care Provider: Cait Noguera Instructions Additional Instructions / Restrictions: Discussed the dose of lisinopril 30 mg twice daily and patient said that what the dose her PCP prescribed and she is doing good on that. She is further that she has whitecoat hypertension. I said this is not the recommended dose with maximum lisinopril 40 mg daily. This is a risk for ELIZABETH. Patient will check with her PCP. She also does not like Mucinex therefore prescription for Tessalon Perles given. Discharge Orders/Prescriptions Prescriptions: New dexamethasone 6 mg tablet 6 mg PO DAILY Qty: 8 0RF albuterol sulfate 90 mcg/actuation HFA aerosol inhaler 2 puff inhalation Q6H PRN (Reason: shortness of breath or wheezing) Qty: 8.5 0RF benzonatate 200 mg capsule 200 mg PO TID PRN (Reason: cough) Qty: 30 0RF Continued Acidophilus Capsule 1 cap PO DAILY multivitamin Tablet 1 tab PO DAILY lisinopril 30 mg tablet 30 mg PO BID Qty: 180 3RF Referrals / Follow Up: Juanito Chowdary DO [Med Staff - Active Staff] - Within 1 Month (for asthma, hypoxia) Rea Proctor MD [Med Staff - [facility]] - Cait Noguera MD [Primary Care Provider] - Disposition Disposition (needs filled in before D/C Order can be placed): Home, Self Care Charges/Coding Visit Charges Inpatient E&M: 68695 Disch Hosp >30min
--- NOTE | 2023-05-29 12:29 | PHA.DC.MC.R ---
Pharmacy [facility] Service has performed discharge medication reconciliation and counseling for this patient. The patient's discharge medication list was reviewed for discrepancies and discrepancies were resolved. The patient was counseled on the following discharge medications and changes in medications for homegoing were reviewed. The Reason for Use, instructions for use, and potential side effects were reviewed for all new medications. The patient's questions regarding all of their medications were answered. 1. Dexamethasone 6 mg PO daliy x 8 days 2. Lisinopril 20 mg PO BID 3. Albuterol 90 mcg/actuation inhaler 2 puffs Q6H PRN 4. Mucinex D 120-1200 mg PO Q12H PNR cold symptoms The patient was able to verbally demonstrate an understanding of their discharge medications. Medications at Discharge Home Medications Lactobacillus acidophilus (Acidophilus capsule) 1 cap PO DAILY GUT HEALTH 05/28/23 multivitamin 1 tab PO DAILY HEALTH MAINTENANCE 05/28/23 albuterol sulfate 90 mcg/actuation aerosol inhaler 2 puff inhalation Q6H PRN shortness of breath or wheezing #8.5 grams 05/29/23 dexamethasone 6 mg tablet 6 mg PO DAILY #8 tabs 05/29/23 lisinopril 30 mg tablet 20 mg (0.6667 x 30 mg) PO BID BLOOD PRESSURE #180 tabs 05/29/23 pseudoephedrine-guaifenesin ER 120 mg-1,200 mg tab,extend release 12hr (Mucus D) 1 tab PO Q12H PRN cold symptoms 1 week #14 tabs 05/29/23
[2023-05-29 13:35] VITALS: BP 132/72; PULSE 101; RESP 18; TEMP 36.9; O2SAT 93
--- NOTE | 2023-05-29 15:03 | CASEMGMT ---
Patient has order for discharge. Patient qualifies for oxygen at discharge. Script received and referral made to [facility]. RN EBONI discussed discharge needs with patient. Patient denies needs or help at discharge. Patient had no further questions or concerns.
== END 2023-05-29 12:15 | disposition home or self-care (01) ==
LOC: ED 11:33 → PCU 11:57
PROVIDERS: Admitting Provider Internal Medicine; Emergency Provider Emergency Medicine; PCP Internal Medicine; Visit Provider Internal Medicine
DX: U07.1 COVID-19 (principal); R09.02 Hypoxemia; J45.41 Moderate persistent asthma with (acute) exacerbation; F17.210 Nicotine dependence, cigarettes, uncomplicated; Z79.899 Other long term (current) drug therapy
CPT/HCPCS: 36415; 71046; 80048; 80053; 80076; 82550; 83605; 83735; 83880; 84100; 84145; 85025; 85379; 85384; 85610; 86140; 87449; 87631; 87651; 93005; 93970; 94640; 94668; 96361; 96365; 96366; 96375; 96376; 97802; 99221; 99285; J7050; J7120; A4216; G0378; J0248

== ENCOUNTER 2024-10-03 20:14 | Emergency (ER) | payer MEDICARE, OTHER, SELFPAY ==
[2024-10-03 20:15] VITALS: BP 146/88; PULSE 90; RESP 16; TEMP 36; O2SAT 98; BMI 13.1
--- NOTE | 2024-10-03 20:24 | ED.VIS.FALL ---
HPI HPI - Fall History of Present Illness Chief Complaint: Fall Informant: patient and family (Son) Occured/Mechanism Occurred: Today Mechanism/Context: Yes same level fall Pain/Injury Worsened by: Nothing Relieved by: Nothing Associated Symptoms Associated Symptoms: Positive for Loss of consciousness; Negative for Parasthesias, Weakness or Loss of function Length of loss of consciousness: Approximately 1 hour Narrative Narrative: Patient presents after a fall that occurred tonight. Patient does not remember the fall. Patient states she woke up on the floor. Patient thinks she was on the floor for approximately an hour. Patient states her son came over and was able to help her up. Son reports that the patient had equal assembly technician strength when he arrived. Son states that he checked her blood pressure sitting and standing and these were normal. Patient denies any chest pain or palpitations. Patient states she has a cough that is due to allergies. Patient states she took a dose of her dicyclomine tonight and drink a glass of wine with it. Patient states she still feels unsteady on her feet. Patient also states she has been having increased stress over the last month. Tetanus Immunization: Unknown [facility] Medical History (Updated 10/03/24 @ 23:[address] Aaron Limon, DO) Eczema Eardrum rupture, right External otitis of left ear Polyp, vocal cord Basal cell carcinoma (BCC) Home Medications ?Medication ?Instructions ?Recorded ?Last Taken ?Type Lactobacillus acidophilus 1 cap PO DAILY GUT HEALTH 05/28/23 05/28/23 History (Acidophilus capsule) multivitamin 1 tab PO DAILY HEALTH MAINTENANCE 05/28/23 05/28/23 History albuterol sulfate 90 mcg/actuation 2 puff inhalation Q6H PRN 05/29/23 Unknown Rx aerosol inhaler shortness of breath or wheezing #8.5 grams lisinopril 30 mg tablet 30 mg PO BID BLOOD PRESSURE #180 05/29/23 05/28/23 Rx tabs dicyclomine 20 mg tablet 20 mg PO PRN 10/03/24 10/03/24 16:30 History Allergy/AdvReac Type Severity Reaction Status Date / Time Sulfa (Sulfonamide Allergy Shortness Verified 10/03/24 20:15 Antibiotics) of breath valdecoxib (From Bextra) Allergy Unknown Verified 10/03/24 20:15 amoxicillin AdvReac Upset Verified 10/03/24 20:15 Stomach erythromycin base AdvReac Upset Verified 10/03/24 20:15 Stomach Family History Other Breast cancer Heart disease Surgical History H/O colectomy H/O hysterectomy for benign disease Social History Smoking Status: Current every day smoker tobacco type: cigarettes alcohol intake: current alcohol intake frequency: a few times a week Alcohol type: wine ROS ROS ED Constitutional Constitutional ED: Denies chills or fever(s) Eyes Eyes: Denies blurry vision or change in vision ENT ENT ED: Reports rhinorrhea; Denies sore throat Cardiovascular Cardiovascular: Denies chest pain or palpitations Respiratory/Chest Respiratory/Chest: Reports cough; Denies dyspnea Gastrointestinal Gastrointestinal: Denies nausea or vomiting Genitourinary Genitourinary ED: Denies dysuria or hematuria Musculoskeletal Musculoskeletal: Denies back pain or neck pain Integumentary Reports rash; Denies abscess Neurologic Neurologic: Denies headache(s) or weakness Allergic/Immunologic Allergic/Immunologic ED: Denies mouth swelling or urticaria EXAM Physical Exam Const Vital Signs: 10/03/24 20:15 10/03/24 20:42 10/03/24 22:15 Temperature 96.8 F L Temperature Source Temporal Pulse Rate 90 87 Respiratory Rate 16 25 H Respiratory Effort Normal Non-Labored Respiratory Depth Normal Respiratory Pattern Normal Blood Pressure 146/88 H 148/88 H Blood Pressure Mean 107 108 Pulse Ox 98 98 96 Oxygen Delivery Method Room Air Room Air Room Air Positive well nourished and well developed General Appearance ED: well developed and NAD HEENT Reports normocephalic Neck full ROM and supple Resp normal respiratory effort and clear to auscultation bilaterally Cardio regular rate and regular rhythm GI non-tender and non-distended Palpation: soft Extremity Extremity Narrative: There are skin tears over the dorsal and ulnar aspects of the left forearm and over the dorsal aspect of the right hand. There is no active bleeding noted. There is no bony crepitance or step-off. There is good range of motion of the upper and lower extremities. There are no deformities noted. Neuro oriented x3, CN's II-XII intact bilaterally, moves all extremities, no focal motor deficits and no sensory deficits noted Huntington Coma Scale: document GCS findings Spontaneous Obeys Commands Oriented 15 Sensorium / Orientation: alert Motor Exam: strength 5/5 throughout Psych mental status grossly normal and thought process normal MDM MDM MDM Narrative Medical decision making narrative: Differential diagnosis includes syncope, closed head injury, intracranial bleeding, cardiac dysrhythmia, cardiac ischemia, dehydration, electrolyte abnormality, pneumonia, bronchitis, urinary tract infection, and rhabdomyolysis. EKG will be obtained to assess for cardiac dysrhythmia and cardiac ischemia. CT scan of the brain will be obtained to assess for intracranial bleeding and stroke. Chest x-ray will be obtained to assess for pneumonia and bronchitis. CBC will be obtained to assess for leukocytosis and anemia. Comprehensive metabolic profile will be obtained to assess for hepatic function, renal function, and electrolyte abnormality. High-sensitivity troponin will be obtained to assess for cardiac ischemia. 2-hour repeat high-sensitivity troponin will be obtained to assess for ongoing cardiac ischemia. Total CPK will be obtained to assess for rhabdomyolysis. Urinalysis will be obtained to assess for urinary tract infection and hematuria. Lab Data Attestation: I reviewed the patient's lab results. Lab results narrative: CBC was reviewed and was within normal limits. Comprehensive metabolic profile was reviewed and was within normal limits. Total CPK was reviewed and was normal at 66. High-sensitivity troponin was reviewed and was normal at less than 6. Urinalysis was reviewed. There is no evidence of urinary tract infection or hematuria. Labs: Laboratory Results - last 24 hr 10/03/24 10/03/24 21:05 22:06 WBC 8.4 RBC 4.24 Hgb 14.6 Hct 43.0 MCV 101.4 H MCH 34.4 H MCHC 34.0 RDW Std Deviation 47.7 H RDW Coeff of Anthony 12.7 Plt Count 307 MPV 8.4 Immature Gran % (Auto) 0.500 Neut % (Auto) 76.8 H Lymph % (Auto) 13.7 L [place] % (Auto) 8.1 Eos % (Auto) 0.4 Baso % (Auto) 0.5 Absolute Neuts (auto) 6.4 Absolute Lymphs (auto) 1.15 Nucleated RBC % 0 Sodium 133 Potassium 3.7 Chloride 98 Carbon Dioxide 22.6 Anion Gap 13 BUN 15 Creatinine 0.72 Estim Creat Clear Calc 32.79 L Est GFR (MDRD) Non-Af 86 BUN/Creatinine Ratio 21.3 H Glucose 93 Calcium 8.9 Total Bilirubin 0.25 AST 29 ALT 17 Alkaline Phosphatase 101 Total Creatine Kinase 66 Troponin T High Sens < 6 Total Protein 6.9 Albumin 4.3 Globulin 2.6 Albumin/Globulin Ratio 1.7 Urine Color Yellow Urine Clarity Clear Urine pH 6.0 Ur Specific [place] 1.015 Urine Protein 15 H Urine Glucose (UA) Normal Urine Ketones Negative Urine Occult Blood 10 H Urine Nitrite Negative Urine Bilirubin Negative Urine Urobilinogen Normal Ur Leukocyte Esterase Negative Urine RBC 0-5 SEEN Urine WBC 0-5 SEEN Ur Squamous Epith Cells 0-5 SEEN Urine Bacteria 0 SEEN Urine Mucus 0 SEEN Radiography Chest X-Ray - ED: 2 View, Read by ED Physician, Read by Radiologist, No Acute Disease and Chronic Changes (COPD) Diagnostic Testing: Clinical Impression(s) from Imaging Studies Brain CT 10/03/24 21:20 IMPRESSION: 1. Generalized brain atrophy. 2. Small vessel ischemic/degenerative changes. 3. No acute intracranial hemorrhage, midline shift or mass effect. If symptoms persist, further evaluation with MRI is recommended. Reading Location: [facility] Chest X-Ray 10/03/24 21:26 IMPRESSION: Suggestion of COPD. Reading Location: [facility] CT scan of the brain was obtained. There is no acute intracranial abnormality. This was interpreted by the radiologist and was also independently reviewed by myself. PA and lateral chest x-ray was obtained. There are 2 views. On my independent interpretation, lung [place] are clear. There is normal cardiac silhouette. Bony thorax is normal. There is no acute process noted. Radiologist also interpreted the x-ray and agrees. EKG Initial EKG: Attestation: I personally reviewed and interpreted this EKG as follows: Interpretation: Sinus Rhythm (81) and No Acute Injury Pattern Comments: EKG was obtained. On my independent interpretation, it showed a normal sinus rhythm with a rate of 81. CO interval, QRS interval, and QTc intervals were all normal. [place] was normal. There are no acute ST or T wave changes. Prior EKG tracings: available for review Prior: Unchanged (05/28/2023) Treatment and Re-Evaluation Narrative: Patient was feeling better on reevaluation. Patient was advised of her findings. Patient does not want to wait for 2-hour repeat troponin. Patient states she feels better and wants to go home. Patient was instructed to follow-up with her primary care physician in 5 to 7 days. Patient was instructed to drink plenty of fluids. Patient was instructed to return if worse in any way. Patient and son understood and were agreeable with the plan. All questions were answered. Discharge Plan Triage Chief Complaint: Fall ED Provider: Aaron Limon Dx/Rx/DC Orders Clinical Impression: Fall, Syncope, Essential hypertension Instructions: ED Fainting, Uncertain Cause Prescriptions: No Action Acidophilus Capsule 1 cap PO DAILY multivitamin Tablet 1 tab PO DAILY albuterol sulfate 90 mcg/actuation HFA aerosol inhaler 2 puff inhalation Q6H PRN (Reason: shortness of breath or wheezing) Qty: 8.5 0RF lisinopril 30 mg tablet 30 mg PO BID Qty: 180 3RF dicyclomine 20 mg tablet 20 mg PO PRN Primary Care Provider: Cait Noguera Referrals: Cait Noguera MD [Primary Care Provider] - 5-7 Days Print Language: Polish Disposition Disposition: Home, Self Care
[2024-10-03 20:42] VITALS: O2SAT 98
--- NOTE | 2024-10-03 20:49 | EKG12_ITS ---
Test Reason : DYSRHYTHMIA Blood Pressure : */* mmHG Vent. Rate : 81 BPM Atrial Rate : 81 BPM P-R Int : 126 ms QRS Dur : 76 ms QT Int : 382 ms P-R-T Axes : 81 81 69 degrees QTcB Int : 443 ms Normal sinus rhythm Normal ECG Confirmed by CLARISSA OWENS, JESIKA ([id number]), website/blog editor TENISHA LAWSON ([id number]) on 10/06/2024 8:51:00 AM Referred By: Confirmed By: JESIKA ROMO MD
[2024-10-03] MEDS: 0.9% Normal Saline (1000mL) 1,000 ML 1000 ML IV (21:05)
[2024-10-03] MEDS: Diphth,Pertuss(Acell),Tet Vac 0.5 ML Vial IM (21:05)
--- NOTE | 2024-10-03 21:20 | CT_ITS ---
EXAM: CT Head Without Intravenous Contrast CLINICAL INDICATION: FALL TECHNIQUE: Axial computed tomography images of the head/brain without intravenous contrast. This CT exam was performed using one or more of the following dose reduction techniques: automated exposure control, adjustment of the mA and/or kV according to patient size, and/or use of iterative reconstruction technique. COMPARISON: No relevant prior studies available. FINDINGS: BRAIN AND EXTRA-AXIAL SPACES: The cerebral and cerebellar sulci are prominent consistent with brain atrophy. Areas of decreased attenuation in the deep cerebral white matter are consistent with small vessel ischemic/degenerative changes. No acute intracranial hemorrhage, midline shift or mass effect. If symptoms persist, further evaluation with MRI is recommended. BONES/JOINTS: Unremarkable. No acute fracture. SOFT TISSUES: Unremarkable. SINUSES: Unremarkable as visualized. No acute sinusitis. MASTOID AIR CELLS: Unremarkable as visualized. No mastoid effusion. CT/Brain/Head without Contrast IMPRESSION: 1. Generalized brain atrophy. 2. Small vessel ischemic/degenerative changes. 3. No acute intracranial hemorrhage, midline shift or mass effect. If symptoms persist, further evaluation with MRI is recommended. Reading Location: [id number]
[2024-10-03 21:24] LABS: Absolute Lymphocyte Count 1.15 X10^3/uL (0.83-4.51); Absolute Neutrophil Count 6.4 X10^3/uL (2.0-7.7); Basophil# 0.04 X10^3/uL; Basophil% 0.5 % (0-1); Eosinophil# 0.03 X10^3/uL; Eosinophils% 0.4 % (0-5); Hemoglobin 14.6 g/dL (12.0-15.0); Lymphocyte # 1.15 X10^3/ul (0.83-4.51); Lymphocyte % 13.7 % (19-41); Mean Corpuscular Hgb 34.4 pg (27.0-32.0); Mean Corpuscular Volume 101.4 fL (81-99); Mean Platelet Vol. 8.4 fl (6.2-12.0); Monocyte# 0.68 X10^3/uL; Monocyte% 8.1 % (0-10); NRBC Flagged by Analyzer 0 % (0-5); Neutrophil # 6.43 X10^3/uL (2.7-7.7); Neutrophil % 76.8 % (47-70); Platelet Count 307 K/mm3 (150-450); RBC Distribution Width CV 12.7 % (11.6-14.6); RBC Distribution Width SD 47.7 fl (35.1-43.9); Red Blood Count 4.24 M/mm3 (4.2-5.4); White Blood Count 8.4 K/mm3 (4.4-11.0)
--- NOTE | 2024-10-03 21:26 | RAD_ITS ---
EXAM: XR Chest, 2 Views CLINICAL INDICATION: COUGH TECHNIQUE: Frontal and lateral views of the chest. COMPARISON: No relevant prior studies available. FINDINGS: LUNGS AND PLEURAL SPACES: Hyperlucent lungs. Flattening of the diaphragm. No consolidation. No pneumothorax. HEART: Unremarkable. No cardiomegaly. MEDIASTINUM: Unremarkable. Normal mediastinal contour. BONES/JOINTS: Unremarkable. No acute fracture. RAD/Chest PA and Lateral IMPRESSION: Suggestion of COPD. Reading Location: [id number]
[2024-10-03 22:01] LABS: ALB/GLOB Ratio 1.7 RATIO (0.9-2.4); AST(SGOT) 29 U/L (<=31); Alanine Aminotransfer ALT/SGPT 17 U/L (<=34); Albumin, Serum 4.3 g/dL (3.4-4.8); Alkaline Phosphatase 101 U/L (35-104); Anion Gap 13 (5-15); BUN 15 mg/dL (4-19); BUN/Creat Ratio 21.3 RATIO (10-20); CPK Total, Creatine Kinase 66 U/L (24-195); Calcium,Total 8.9 mg/dL (7.6-11.0); Carbon Dioxide 22.6 mmol/L (21.0-32.0); Chloride 98 mmol/L (98-108); Creatinine, Serum 0.72 mg/dL (0.70-1.20); EST Glomerular Filtration Rate 86 (>60); Estimated Creatinine Clearance 32.79 ml/min (50-250); Globulin 2.6 g/dL (2.2-4.2); Glucose 93 mg/dL (70-99); Potassium 3.7 mmol/L (3.3-5.1); Protein, Total 6.9 g/dL (5.9-8.4); Sodium Level 133 mmol/L (133-145); Total Bilirubin 0.25 mg/dL (0.00-1.30)
[2024-10-03 22:15] VITALS: BP 148/88; PULSE 87; RESP 25; O2SAT 96
[2024-10-03 22:16] LABS: Troponin T High Sensitivity < 6 ng/L (<=14)
[2024-10-03 22:18] LABS: Bacteria 0 SEEN /hpf (None Seen); Mucous, Urine 0 SEEN /hpf (<or=2+)
[2024-10-03 22:44] LABS: Color, Urine Yellow (Yellow); Glucose, Dipstick Normal (Normal); Ketone-Dipstick Negative (Negative); Leukocyte Esterase-Dipstick Negative /ul (Negative); Nitrite-Dipstick Negative (Negative); Occult Blood-Urine 10 /ul (Negative); Protein-Dipstick 15 mg/dl (Negative); Specific Gravity, Urine 1.015 (1.002-1.030); Urine Bilirubin Dipstick Negative (Negative); Urine Clarity Clear (Clear); Urine Urobilinogen Normal (Normal)
[2024-10-03 23:05] LABS: Red Blood Cells-Urine 0-5 SEEN /hpf (0-5); White Blood Cells 0-5 SEEN /hpf (0-5)
[2024-10-03 23:06] LABS: Squamous Epithelial Cells - UA 0-5 SEEN /hpf (5-10)
== END 2024-10-03 23:31 | disposition home or self-care (01) ==
PROVIDERS: Emergency Provider Emergency Medicine; PCP Internal Medicine; Visit Provider Emergency Medicine
DX: R55 Syncope and collapse (principal); I10 Essential (primary) hypertension; F17.210 Nicotine dependence, cigarettes, uncomplicated; Z23 Encounter for immunization; S51.812A Laceration without foreign body of left forearm, initial encounter; S61.411A Laceration without foreign body of right hand, initial encounter; W19.XXXA Unspecified fall, initial encounter
CPT/HCPCS: 70450; 71046; 80053; 81001; 82550; 84484; 85025; 90471; 90715; 93005; 96360; 99285